=== PATIENT | male | born 1950 | race Caucasian/White ===

== ENCOUNTER 2019-11-30 07:47 | Inpatient (IN) | payer MEDICARE ==
--- NOTE | 2019-11-30 08:00 | ED ---
Abdominal Pain/Male - HPI Summary HPI Summary: Patient is a 69 y/o M presenting to the ED via EMS for a chief complaint of abdominal pain near the right inguinal region that began 10 days ago and worsened on 11/29/19 to the include the umbilical region. He reports having the hernia for 12 years. On 11/29/19, he was seen by Dr. Mcdonald for a consult, and had his inguinal hernia reduced at that time. Later in the day after the visit, patient reports having worsening abdominal pain for which he was seen at [facility]. While at [place], patient was started on antibiotics for an abscess found on abdominal CT. Patient reports having diarrhea that began on , nausea that began on 11/30/19, diaphoresis, and dizziness. Patient denies any fever, chills, weight loss, erythema of eyes, sore throat, chest pain , shortness of breath, cough, vomiting, dysuria, hematuria, myalgia, edema, or rash. He rates the abdominal pain as a 9/10 in severity. Movement worsens the abdominal pain. Morphine given at [place] improved the abdominal pain. PMHx is significant for HTN, but a history of DM is denied. Patient admits tobacco use. - History of Current Complaint Chief Complaint: EDAbdPain Stated Complaint: ABDOMINAL PAIN PER EMS Time Seen by Provider: 11/30/19 07:48 Hx Obtained From: Patient Onset/Duration: Gradual Onset, Still Present Timing: Constant Severity Initially: Severe Severity Currently: Moderate Pain Intensity: 9 Pain Scale Used: 0-10 Numeric Location: Discrete At: RLQ, Umbilical Radiates: No Aggravating Factor(s): Movement Alleviating Factor(s): Medications - Morphine Associated Signs And Symptoms: Positive: Diaphoresis, Dizzy, Nausea, Diarrhea. Negative: Fever, Cough, Chest Pain, Vomiting - Allergies/Home Medications Allergies/Adverse Reactions: Allergies Allergy/AdvReac Type Severity Reaction Status Date / Time No Known Allergies Allergy Verified 11/30/19 07:54 Home Medications: Home Medications Aspirin EC TAB* [Ecotrin EC Low Dose 81 MG*] 81 mg PO DAILY 11/30/19 [History Confirmed 11/30/19] Lisinopril TAB* [Prinivil TAB*] 20 mg PO BID 11/30/19 [History Confirmed ] Naproxen Sodium [Aleve] 220 mg PO DAILY PRN 11/30/19 [History Confirmed 11/30/19 ] PMH/Surg Hx/FS Hx/Imm Hx Previously Healthy: Yes Endocrine/Hematology History: Denies: Hx Diabetes Cardiovascular History: Reports: Hx Hypertension - Well-controlled GI History: Reports: Other GI Disorders - Hernia Sensory History: Denies: Hx Legally Blind, Hx Deafness Opthamlomology History: Denies: Hx Legally Blind EENT History: Denies: Hx Deafness - Surgical History Surgical History: None Surgery Procedure, Year, and Place: None Infectious Disease History: No Infectious Disease History: Denies: Traveled Outside the [place] in Last 30 Days - Family History Known Family History: Negative: Diabetes - Social History Occupation: Retired Lives: With Family Alcohol Use: None Hx Substance Use: No Substance Use Type: Reports: None Hx Tobacco Use: Yes Smoking Status (MU): Current Every Day Smoker Type: Cigarettes Review of Systems Positive: Skin Diaphoresis. Negative: Fever, Chills, Other - Negative weight loss Negative: Erythema Negative: Sore Throat Negative: Chest Pain Negative: Shortness Of Breath, Cough Positive: Abdominal Pain - Right inguinal and umbilical regions, Nausea. Negative: Vomiting Negative: dysuria, hematuria Negative: Myalgia, Edema Negative: Rash Neurological/Mental Status: Other - Positive dizziness All Other Systems Reviewed And Are Negative: Yes Physical Exam - Summary Physical Exam Summary: Constitutional: Well-developed, Well-nourished, Alert. (-) Distressed Skin: Warm, Dry HENT: Normocephalic; Atraumatic Eyes: Conjunctiva normal Neck: Musculoskeletal ROM normal neck. (-) JVD, (-) Stridor, (-) Tracheal deviation Cardio: Rhythm regular, rate normal, Heart sounds normal; Intact distal pulses; The pedal pulses are 2+ and symmetric. Radial pulses are 2+ and symmetric. (-) Murmur Pulmonary/Chest wall: Effort normal. (-) Respiratory distress, (-) Wheezes, (-) Rales Abd: Soft, (-) Distension, (-) Guarding, (-) Rebound. Large right inguinal hernia that is tender to palpation, exquisite RLQ tenderness Musculoskeletal: (-) Edema Lymph: (-) Cervical adenopathy Neuro: Alert, Oriented x3 Psych: Mood and affect Normal Triage Information Reviewed: Yes Vital Signs Reviewed: Yes Procedures - Sedation Patient Received Moderate/Deep Sedation with Procedure: No Diagnostics - Laboratory Result Diagrams: 11/30/19 08:21 11/30/19 08:21 Lab Statement: Any lab studies that have been ordered have been reviewed, and results considered in the medical decision making process. - EKG 08:01 Cardiac Rate: NL - 75 BPM EKG Rhythm: Sinus Rhythm ST Segment: Normal Ectopy: None Summary of EKG Findings: EKG at 08:01 shows normal sinus rhythm with 75 BPM, T wave inversion in lead I, no STEMI. Reviewed and interpreted by Dr. Martines. Abdominal Pain Male Course/Dx - Course Course Of Treatment: Patient is a 69 y/o M presenting to the ED via EMS for a chief complaint of abdominal pain near the right inguinal region that began 10 days ago and worsened on 11/29/19 to the include the umbilical region. He reports having the hernia for 12 years. On 11/29/19, he was seen by Dr. Mcdonald for a consult, and had his inguinal hernia reduced at that time. Later in the day after the visit, patient reports having worsening abdominal pain for which he was seen at [facility]. While at [place], patient was started on antibiotics for an abscess found on abdominal CT. Patient reports having diarrhea that began on 11/29/19, nausea that began on 11/30/19, diaphoresis, and dizziness. Patient denies any fever, chills, weight loss, erythema of eyes, sore throat, chest pain, shortness of breath, cough, vomiting, dysuria, hematuria, myalgia, edema, or rash. PMHx is significant for HTN, but a history of DM is denied. On exam, large right inguinal hernia that is tender to palpation, exquisite RLQ tenderness. In the ED course, patient was given fentanyl 75 mcg TRANSDERM, fentanyl 75 mcg IV SLOW, nicotine 1 patch TRANSDERM, and IV fluids. EKG at 08:01 shows normal sinus rhythm with 75 BPM, T wave inversion in lead I, no STEMI. Laboratory abnormal findings: absolute neuts 10.1, absolute monos 0.5, INR 1.19, APTT 18, carbon dioxide 16. At 08:07, I discussed with Dr. Rosana Durand who will evaluate imaging. I discussed my concern for strangulated hernia rather than abscess. At 09:23, Dr. Rosana Durand recommends oral antibiotics and Augmentin BID for 2 weeks. We reviewed the records from [place], and reviewed the CT report and labs. I reviewed patients PCP reports whereby patient received a general surgery consultation; no EKG is available. Reviewing the [place] records, patients pulse was 100, respiration 92, BP 96/ 58, oximetry 92%. Patient became hypotensive after receiving morphine. According to [place] notes, a comparison to an EKG on 07/2013 shows T wave inversions and ST depressions are new. At 09:39, Dr. Tressa Dave reviewed the patients case and agrees to admit the patient to [facility] with a diagnosis of sepsis, right-sided abdominal abscess, and myocardial ischemia. Patient will be admitted to [facility] with a diagnosis of sepsis, right-sided abdominal abscess, and myocardial ischemia. - Diagnoses Provider Diagnoses: Myocardial ischemia, Sepsis, Abdominal abscess - Provider Notifications Discussed Care Of Patient With: Rosana Durand - At 08:07, I discussed with Dr. Rosana Durand who will evaluate imaging. I discussed my concern for strangulated hernia rather than abscess. At 09:23, Dr. Rosana Durand recommends oral antibiotics and Augmentin BID for 2 weeks. At 09:39, Dr. Tressa Dave reviewed the patients case and agrees to admit the patient to [facility] with a diagnosis of sepsis, right- sided abdominal abscess, and myocardial ischemia. Time Discussed With Above Provider: 08:07 Instructed by Provider To: Admit As Inpatient Discharge ED - Sign-Out/Discharge Documenting (check all that apply): Patient Departure - Admit - Discharge Plan Condition: Stable Disposition: ADMITTED TO [facility] Referrals: Care [facility] [Outside] - Attestation Statements Document Initiated by Scribe: Yes Documenting Scribe: Magda Specner Provider For Whom Scribe is Documenting (Include Credential): Dov Martines MD Scribe Attestation: I, Magda Spencer, scribed for Dov Martines MD on 11/30/19 at 1018. Status of Scribe Document: Ready
[2019-11-30] MEDS ORDERED: NS 0.9% 1000 ML** 1,000 ML IV SCH ×2 (08:15→10:45)
[2019-11-30 08:34] LABS: ABS Lymphocytes 0.5 10^3/ul (1.0-4.8); ABS Monocytes 0.7 10^3/ul (0-0.8); ABS Neutrophils 10.1 10^3/ul (1.5-7.7); Eosinophil % 0.2 %; Hematocrit 45 % (42-52); Hemoglobin 14.7 g/dL (14.0-18.0); Lymphocyte % 4.3 %; Mean Corpuscular HGB Conc 33 g/dL (31-36); Mean Corpuscular Hemoglobin 31 pg (27-31); Mean Corpuscular Volume 95 fL (80-94); Mean Platelet Volume 9.9 fL (7.4-10.4); Platelet Count 172 10^3/uL (150-450); Red Cell Distribution Width 13 % (10-15); White Blood Count 11.4 10^3/uL (3.5-10.8)
[2019-11-30 08:41] LABS: INR 1.19 (0.82-1.09)
[2019-11-30] MEDS ORDERED: fentaNYL* 50 MCG/ML 2 ML VIAL (100 MCG VIAL) IV SLOW PU ONE (08:50)
[2019-11-30] MEDS ORDERED: Nicotine PATCH 14 MG/24 HR* PATCH TRANSDERM ONE (08:50)
[2019-11-30 08:51] LABS: Albumin 3.2 g/dL (3.2-5.2); Albumin/Globulin Ratio 0.9 (1-3); BUN/Creatinine Ratio 13.4 (8-20); Calcium 8.4 mg/dL (8.6-10.3); EGFR African American 72.9 (>60); EGFR Non-African American 60.3 (>60); Globulin 3.4 g/dL (2-4); Potassium 4.5 mmol/L (3.5-5.0); Total Bilirubin 0.6 mg/dL (0.2-1.0); Total Protein 6.6 g/dL (6.4-8.9)
[2019-11-30 08:53] LABS: Troponin I 0.01 ng/mL (<0.03)
[2019-11-30] MEDS ORDERED: fentaNYL PATCH 75 MCG/HR* 75 MCG TRANSDERM SCH (09:00)
--- NOTE | 2019-11-30 10:10 | CONSULT ---
Consult Consult: DATE OF CONSULTATION: 11/30/19 REASON FOR CONSULTATION: Abdominal pain and intra-abdominal abscess PCP: Vince Alves MD HPI: Lowell Pollock is a 69 year-old man with a history of HTN who presented to the ED at [place] for abdominal pain. He started having right groin pain about 1 week ago. The pain was about 8/10, and it was severe enough that he had a hard time sleeping. He saw his PCP on 11/24. The patient has a right inguinal hernia that has been present for about 12 years but had been more or less asymptomatic. The pain was over the right hernia. He saw Dr Mcdonald yesterday in clinic to discuss hernia repair. The hernia was reduced, and the pain improved a little bit. Last night he developed severe infraumbilical abdominal pain. He denies fevers but had sweats and nausea last night. He also reports diarrhea yesterday but bowel movements had been normal and regular for the past week. He denies dysuria or hematuria. Appetite has been normal up until yesterday. He reports he did not really eat or drink yesterday. Denies chest pain or shortness of breath. Last colonoscopy was 2004 where he was found to have benign polyps. He was supposed to have a repeat scope 5 years after which did not happen. He was then told that he did not need another colonoscopy after 68 years old. At [place], WBC was 10.[address]. [address] abdomen/pelvis showed an intra -abdominal abscess in addition to bilateral fat-containing inguinal hernias. He became hypotensive after receiving morphine. He received one dose of Zosyn and 1L NS before being transferred to [place] ED. Of note, he also had new ST depressions on EKG but troponin was normal. He has been hemodynamically stable in the [place] ED. PMH: HTN Peripheral vascular disease Tobacco use PSH: Knee surgery in 1960s after football injury Home Medications Medication Instructions Recorded Confirmed Type Aspirin EC TAB* [Ecotrin EC Low 81 mg PO DAILY 11/30/19 11/30/19 History Dose 81 MG*] Lisinopril TAB* [Prinivil TAB*] 20 mg PO BID 11/30/19 11/30/19 History Naproxen Sodium [Aleve] 220 mg PO DAILY PRN 11/30/19 11/30/19 History Allergies No Known Allergies Allergy (Verified 11/30/19 07:54) FH: Father in 1960s, thought to be due to a heart issue. He had a h/o scarlet fever. Mother from lung cancer. He has 2 sisters who are overall healthy. No h/o cancers or bleeding disorders in the family. SH: Patient lives with his significant other of 30 years. He is retired. He smokes about 1/2 ppd and first started smoking as a teenager. He drinks alcohol about once a month. He denies recreational drug use. ROS: 10-point review of systems was obtained. Pertinent positives and negatives are in HPI. PHYSCIAL EXAM: Temp Pulse Resp BP Pulse Ox 97.6 F 78 18 127/77 95 11/30/19 07:49 11/30/19 09:13 11/30/19 08:55 11/30/19 09:13 11/30/19 09:13 General: NAD, lying on stretcher Head: Normocephalic and atraumatic Eyes: Pupils equal, no scleral icterus. Mouth: Moist mucous membranes Neck: Supple. Trachea midline. CV: RRR Respiratory: CTA, no accessory muscle use Abdomen: Soft, nondistended. Tenderness to palpation, worse in periumbilical area and mild tenderness in bilateral lower quadrants. R inguinal hernia that is mildly tender to palpation. Guarding when palpating bilateral lower quadrants , no rebound. Skin: Warm and dry. Intact Extremities: Warm. No pedal edema. Neuro: Alert and oriented x3. Moves all extremities equally. Psych: Normal affect. Laboratory Results - last 24 hr 11/30/19 11/30/19 11/30/19 08:11 08:21 08:21 WBC 11.4 H RBC 4.70 Hgb 14.7 Hct 45 MCV 95 H MCH 31 MCHC 33 RDW 13 Plt Count 172 MPV 9.9 Neut % (Auto) 88.8 Lymph % (Auto) 4.3 Nye % (Auto) 6.5 Eos % (Auto) 0.2 Baso % (Auto) 0.2 Absolute Neuts (auto) 10.1 H Absolute Lymphs (auto) 0.5 L Absolute Monos (auto) 0.7 Absolute Eos (auto) 0.0 Absolute Basos (auto) 0.0 Absolute Nucleated RBC 0.0 Nucleated RBC % 0.0 INR (Anticoag Therapy) 1.19 H APTT 18.0 L Sodium 133 L Potassium 4.5 Chloride 109 Carbon Dioxide 16 L Anion Gap 8 BUN 16 Creatinine 1.19 H Est GFR ( Amer) 72.9 Est GFR (Non-Af Amer) 60.3 BUN/Creatinine Ratio 13.4 Glucose 93 Lactic Acid Calcium 8.4 L Total Bilirubin 0.60 AST 10 L ALT 6 L Alkaline Phosphatase 59 Troponin I 0.01 Total Protein 6.6 Albumin 3.2 Globulin 3.4 Albumin/Globulin Ratio 0.9 L 11/30/19 08:21 WBC RBC Hgb Hct MCV MCH MCHC RDW Plt Count MPV Neut % (Auto) Lymph % (Auto) Nye % (Auto) Eos % (Auto) Baso % (Auto) Absolute Neuts (auto) Absolute Lymphs (auto) Absolute Monos (auto) Absolute Eos (auto) Absolute Basos (auto) Absolute Nucleated RBC Nucleated RBC % INR (Anticoag Therapy) APTT Sodium Potassium Chloride Carbon Dioxide Anion Gap BUN Creatinine Est GFR ( Amer) Est GFR (Non-Af Amer) BUN/Creatinine Ratio Glucose Lactic Acid 0.7 Calcium Total Bilirubin AST ALT Alkaline Phosphatase Troponin I Total Protein Albumin Globulin Albumin/Globulin Ratio CT abdomen/pelvis: Bilateral fat-containing inguinal hernias. Heterogenous structure near sigmoid colon in right mid to lower abdomen, 6 x 4 x 4.6 cm. There is adjacent stranding, possible abscess. IMPRESSION: 69M with early intra-abdominal abscess, most likely due to diverticular disease. I reviewed the images with Dr Kay who felt that the collection was small and appeared more like a phlegmon than abscess. There also may not be a safe window. I discussed with the patient that he will need treatment with antibiotics. He is comfortable going home and prefers to go home. He will call the clinic at [place] to schedule a follow up appt with Dr Lozada next . I recommended colonoscopy in about 3 months to rule out another reason for the abscess such as malignancy. The inguinal hernias could be repaired electively. We also talked about possible work up for the EKG changes which may require admission. PLAN: Cardiac work up per ED and hospitalist teams. Augmentin (or equivalent) for 14 days. Pain medication. Cautioned patient against Aleve since creatinine was elevated at [place], although repeat creatinine here is almost normal. Recommended colonoscopy in about 3 months. I discussed with the patient that he should return to the ED if he develops fevers, worsening abdominal pain, or nausea/vomiting. Discussed smoking cessation but patient declined.
[2019-11-30] MEDS ORDERED: Ondansetron INJ* 2 MG/ML VIAL IV PRN (10:16)
[2019-11-30] MEDS ORDERED: Al Hydrox/Mg Hydrox/Simet LIQ* 30 ML UDC PO PRN (10:16)
[2019-11-30] MEDS ORDERED: Acetaminophen TAB* 325 MG PO PRN (10:16)
--- NOTE | 2019-11-30 13:11 | HP ---
CC: Dr. Alves * HISTORY AND PHYSICAL: DATE OF ADMISSION: 11/30/19 PROVIDER: LILI Warren ATTENDING PHYSICIAN WHILE IN THE HOSPITAL: Dr. Tressa Baldwin * (dictated by LILI Warren). PRIMARY CARE PROVIDER: Dr. Alves. CHIEF COMPLAINT: Abdominal pain. HISTORY OF PRESENT ILLNESS: Lowell Pollock is a 69-year-old white male with past medical history significant for hypertension and peripheral arterial disease, who initially presented to [facility] Emergency Department due to severe abdominal pain. The patient has been having right lower quadrant pain x10 days at the site of a chronic inguinal hernia that he has had for 12 years, and for that reason, he established care with Dr. Mcdonald in the general surgery practice. The patient saw him in the office yesterday. His hernia was reduced manually in the office and his pain was improved, but when he arrived home later in the evening, his pain was worse again before and was radiating towards the umbilicus. Since yesterday evening, the patient has had 7 to 8 episodes of diarrhea. He started feeling nauseous, diaphoretic and lightheaded today and decided to proceed to the emergency department. He additionally has been without an appetite. He denies fevers, chills, chest pain, difficulty breathing, syncope, dysuria, hematuria, hematochezia, and vomiting. When he actually arrived to the emergency department at [facility], his systolic blood pressure was in the 90s, but he has since received 2 L of normal saline at [facility] and since he has arrived to the emergency department here, his systolic blood pressure has been in the 120s to 130s. Dr. Rosana Durand saw the patient in consultation from the general surgery service. She recommended conservative management with oral antibiotics and discharged to home. However, Dr. Martines was concerned for sepsis considering the patient's SIRS criteria of tachypnea, tachycardia and hypotension and is requesting admission to the hospital and evaluation by the hospital medicine team. PAST MEDICAL HISTORY: 1. Hypertension. 2. Peripheral arterial disease confirmed with abnormal ABIs. 3. Right inguinal hernia x12 years. PAST SURGICAL HISTORY: Right knee repair approximately 50 years ago. HOME MEDICATIONS: 1. Aspirin 81 mg p.o. daily. 2. Lisinopril 20 mg p.o. b.i.d. 3. Naproxen 220 mg p.o. daily p.r.n. pain. ALLERGIES: No known drug allergies. FAMILY HISTORY: Father at age 47 due to "heart problems". Mother at age 75 due to lung cancer. SOCIAL HISTORY: The patient smokes tobacco approximately half a pack per day for 50 years. Denies illicit drug use. He drinks an alcoholic beverage once a month. He has 3 children and he has been with his partner for 30 years and lives with her. He is retired and previously worked in [employer]. His partner's name is Jennifer Restrepo, she is his surrogate medical decision maker should he need one. Her phone number is [phone]. REVIEW OF SYSTEMS: An 11-point review of systems was completed and all pertinent positives and negatives are above in the HPI. All other systems are negative. PHYSICAL EXAMINATION GENERAL: Elderly white male lying in hospital bed, appearing comfortable, in no acute distress. VITAL SIGNS: On arriving to [facility], temperature 97.6, pulse 77, respiratory rate 16, oxygen saturation 96% on room air, blood pressure 138/76. EYES: PERRL. Sclerae anicteric. ENT: Mucous membranes moist. LUNGS: Clear to auscultation throughout. CARDIO: Regular rate and rhythm without murmurs, rubs or gallops. ABDOMEN: Normoactive bowel sounds. Abdomen is tender in the lower quadrant. No rebound tenderness, guarding, distention. Jar sign is negative. EXTREMITIES: No clubbing, cyanosis or edema. NEUROLOGIC: The patient is alert and oriented x3. Able to move all extremities. No tremors. SKIN: Warm, dry and intact. Not diaphoretic. PERTINENT STUDIES/LAB DATA: White blood cell count 11.4, hemoglobin 14.7, hematocrit 45, platelet count 172. INR 1.19, PTT 18. Sodium 133, potassium 4.5 , chloride 109, carbon dioxide 16, anion gap 8, BUN 16, creatinine 1.19, glucose 93, lactic acid 0.7, calcium 8.4. Total bili 0.6, AST 10, ALT 6, alk phos 59. Troponin 0.01. Creatinine at [facility] this morning was 1.7. Troponin at [facility] this morning was 0.02. CT chest with contrast performed this morning at [facility], radiologist's impression: No acute findings. CT abdomen and pelvis with contrast performed at [facility] this morning, findings include: There are 2 low-density lesions in the left lobe of the liver with the larger one measuring approximately 1.4 cm, probably cyst. There is an area of asymmetric decreased density in the right lobe of the liver measuring approximately 8.8 x 6.3 x 6.0 cm in size suggesting fatty infiltration. Bilateral renal cysts are identified. The largest cyst is in the left kidney and it measures approximately 2.2 cm. A few colonic diverticula are demonstrated. There is an abnormal heterogeneous structure in close association to the sigmoid colon. The structure measures approximately 6.0 x 4.0 x 4.6 cm in size. There is some stranding of the surrounding mesentery. The appendix is not definitely identified. Radiologist's impression: 1. Heterogeneous soft tissue mass in the right mid to lower abdomen, suspicious for abscess. 2. Colonic diverticulosis. 3. Calcifications at the common iliac arteries with high-grade stenosis. 4. Two hepatic cysts. 5. Area of diminished attenuation of the liver, possibly fatty infiltration. 6. Bilateral renal cysts. EKG: T-wave inversions in lead V2 through V5 with T-wave flattening in V6. No ST depressions or elevations. There are some repolarization changes in V3 through V4. Normal sinus rhythm, upright axis with rate of 75 beats per minute. Of note, I was able to obtain an EKG from December of 2012 from [facility], which demonstrated upright T-waves in all of the lateral and septal leads. Therefore, these changes are new. ASSESSMENT AND PLAN: Lowell Pollock is a 69-year-old while male with past medical history significant for peripheral arterial disease and hypertension, who presented to the emergency department due to abdominal pain. The patient will be admitted OBV for: 1. Colonic abscess. I suspect this likely represents a diverticular abscess. While the general surgery team was initially planning to manage this conservatively outpatient, we will be bringing him in OBV for overnight monitoring considering he was hypotensive in the emergency department at [place]. This has now improved. Dr. Rosana Durand is aware that he has been inpatient and someone from general surgery team will be seeing the patient tomorrow as well. I will start him on IV Cipro and Flagyl. Continue to monitor him and pain control and symptomatic control. Due to his high volume of diarrhea, I will be checking him for C. diff as well. I will also have him on clear liquid diet and I will be able to advance this as tolerated. 2. EKG changes. The patient has changes on his EKG compared to 2013 EKG. I currently have no suspicion for acute coronary syndrome as the patient is asymptomatic and his troponin has been negative x2 values at [place] and at our emergency department. I suspect that the patient likely had a silent myocardial infarction sometime in the recent years, especially considering his risk factors of hypertension, family history and peripheral arterial disease. I will monitor him on telemetry, but I have no need to further work this up at this time. The patient should likely have outpatient followup regarding this including a stress test and echocardiogram. Additionally, his PCP should follow his incidental findings on his liver and of the high-grade stenosis of his common iliac artery. 3. Sepsis. The patient has sepsis secondary to the colonic abscess. His SIRS criteria includes hypotension when he arrived to the emergency department at [place] as well as tachycardia, tachypnea. He is afebrile without leukocytosis. He will be receiving IV antibiotics as previously mentioned and his blood cultures have been drawn. He already received sepsis fluid bolus at the ED at [place] and I will be continuing IV fluids further discussed below. 4. Acute kidney injury. The patient had a creatinine of 1.7 when he arrived to the [place] ED. I suspect this is prerenal considering his poor oral intake and diarrhea. This has already improved since receiving fluids in the [place] ED. I will continue the normal saline at 100 cc/hour. I do not believe he has chronic kidney disease at baseline as I do have records from his PCP, it does not state this. 5. Hypertension. The patient takes lisinopril at home. I will be holding this due to his initial presentation with hypotension. 6. Peripheral arterial disease. I will continue the patient's aspirin and as previously mentioned he should follow up on the incidental finding of high- grade stenosis of his common iliac artery on CT done at [place] with his PCP. 7. Tobacco use. The patient smokes half a pack per day and I will start a nicotine patch 14 mg for 24 hours. 8. FEN. The patient is having clear liquid diet and I will advance as tolerated. Fluids as previously mentioned. Electrolytes are no need for repletion. 9. DVT prophylaxis. The patient has a DVT risk score of 2 and I will order subcu heparin. 10. Code status. The patient is a full code. TIME SPENT: Approximately 50 minutes was spent on this admission, approximately half of this time was spent at bedside evaluating the patient and discussing plan of care. This case has been reviewed by my attending, Dr. Tressa Baldwin and she agrees with this plan of care. LILI WARREN [id number]/[facility] #: [id number] ALIYAH
[2019-11-30] MEDS: metroNIDAZOLE IV 500 MG/100ML* 500 MG/100 ML BAG IVPB SCH ×2 (15:04→21:40)
[2019-11-30] MEDS: Heparin VIAL(*) 5000 UNITS/ML VIAL (FIVE THOUSAND) SUBCUT SCH ×2 (15:04→21:41)
[2019-11-30] MEDS: Morphine INJ* 2 MG/ML 1 ML SYRINGE (TWO MG - NEW SYRINGE VERSION) IV PRN (15:09)
[2019-11-30] MEDS: oxyCODONE TAB* 5 MG TAB PO PRN (17:11)
[2019-11-30] MEDS: Ciprofloxacin 400MG IVPREMIX(* 400 MG/200 ML BAG IVPB SCH (17:12)
[2019-11-30] MEDS ORDERED: Nicotine Patch Removal NOTE FOLLOW UP SCH (21:00)
[2019-11-30] MEDS: oxyCODONE/Acetamin 5/325 MG* TAB PO PRN (21:55)
[2019-12-01] MEDS: Ciprofloxacin 400MG IVPREMIX(* 400 MG/200 ML BAG IVPB SCH (02:00)
[2019-12-01] MEDS: Morphine INJ* 2 MG/ML 1 ML SYRINGE (TWO MG - NEW SYRINGE VERSION) IV PRN ×3 (02:01→21:01)
[2019-12-01] MEDS: oxyCODONE TAB* 5 MG TAB PO PRN ×2 (02:01→21:00)
[2019-12-01] MEDS ORDERED: Metoprolol Tartrate IV* 1 MG/ML 5 ML VIAL IV ONE ×2 (05:08→06:22)
[2019-12-01] MEDS: Heparin VIAL(*) 5000 UNITS/ML VIAL (FIVE THOUSAND) SUBCUT SCH (05:19)
[2019-12-01] MEDS: metroNIDAZOLE IV 500 MG/100ML* 500 MG/100 ML BAG IVPB SCH ×4 (05:19→21:01)
--- NOTE | 2019-12-01 05:38 | PN ---
Hospitalist Progress Note Date of Service: 12/01/19 450 patient went into afib rvr hr 140-150 no symptoms, denies chest pain, denies sob, denies palpitations, lungs cta, heart sounds s1 s2 irregular irregular, plan chadsvasc2 -3 will start hep gtt in case need for intervention on abd abcess, 5mg iv lopressor now cbc bmp mag tsh, ekg confirms afib rvr t wave inversion noted v3-v5 flat in v6 I inverted similar to previous ekg afib new echo ordered will need cards consult, made npo in case cardioversion pursued,
[2019-12-01] MEDS: Heparin VIAL(*) 5000 UNITS/ML VIAL (FIVE THOUSAND) IV PRN ×2 (05:42→21:01)
[2019-12-01] MEDS: Heparin DRIP 25,000 UNITS(*) 25,000 UNITS/500 ML BAG IV SCH (05:43)
[2019-12-01 05:51] LABS: ABS Eosinophils 0.1 10^3/ul (0-0.6); ABS Lymphocytes 0.9 10^3/ul (1.0-4.8); ABS Monocytes 0.7 10^3/ul (0-0.8); Eosinophil % 0.6 %; Hematocrit 43 % (42-52); Hemoglobin 14.4 g/dL (14.0-18.0); Lymphocyte % 8.1 %; Mean Corpuscular HGB Conc 34 g/dL (31-36); Mean Corpuscular Hemoglobin 32 pg (27-31); Mean Corpuscular Volume 95 fL (80-94); Mean Platelet Volume 10.2 fL (7.4-10.4); Nucleated Red Blood Cells % 0.1; Platelet Count 138 10^3/uL (150-450); Red Blood Count 4.47 10^6 /uL (4.18-5.48); Red Cell Distribution Width 13 % (10-15); White Blood Count 10.7 10^3/uL (3.5-10.8)
[2019-12-01 05:59] LABS: Activated Partial Thrombo Time 34.4 seconds (26.0-38.0); INR 1.64 (0.82-1.09)
[2019-12-01 06:10] LABS: BUN/Creatinine Ratio 13.4 (8-20); Calcium 8.7 mg/dL (8.6-10.3); EGFR African American 78.2 (>60); EGFR Non-African American 64.6 (>60); Magnesium 1.6 mg/dL (1.9-2.7); Potassium 4.5 mmol/L (3.5-5.0)
[2019-12-01 06:13] LABS: Troponin I 0.02 ng/mL (<0.03)
[2019-12-01] MEDS: oxyCODONE/Acetamin 5/325 MG* TAB PO PRN (06:20)
[2019-12-01] MEDS ORDERED: Magnesium Sulfate 2 GM IV* 2 GM/50 ML BAG IVPB ONE (06:30)
[2019-12-01 06:43] LABS: TSH (Thyroid Stimulating Horm) 2.12 mcIU/mL (0.34-5.60)
[2019-12-01 06:45] LABS: Free T4 1.05 ng/dL (0.61-1.12)
[2019-12-01 07:13] LABS: Albumin/Globulin Ratio 0.9 (1-3); Globulin 3.5 g/dL (2-4); Total Bilirubin 0.5 mg/dL (0.2-1.0); Total Protein 6.5 g/dL (6.4-8.9)
[2019-12-01] MEDS ORDERED: Digoxin IV* 0.5 MG/2 ML AMP (0.25 MG/ML) IV SLOW PU ONE ×2 (07:26→09:21)
[2019-12-01] MEDS: Nicotine PATCH 14 MG/24 HR* PATCH TRANSDERM SCH (08:26)
[2019-12-01] MEDS: Aspirin EC TAB* 81 MG TAB.EC PO SCH (08:27)
[2019-12-01] MEDS: Nicotine Patch Removal NOTE PATCH OFF SCH (08:33)
--- NOTE | 2019-12-01 09:16 | ECHO ---
*[facility]* [place] [address] Fax #: [phone] Transthoracic Echocardiogram Patient: Lowell Pollock : 1950 Study Date: 12/01/2019 Age: 69 Gender: M HR: 124 bpm Height: 70 in /177.8 cm BSA: 2.05 m^2 Weight: 191.6 lb /87.1 kg BMI: 27.5 kg/m^2 *[place]aters[facility] Tender: * Radha Crocker *Referring Physician: * Gamal GaticaReading Physician: * Cedrick Jones MD Indications: Abnormal EKG. History: Atrial fibrillation. Risk factors: Current tobacco use. Hypertension. Family history is significant for coronary artery disease. Conclusions Summary: - Left ventricle: Systolic function is hyperdynamic. The estimated ejection fraction is 65-70%. - Right ventricle: The cavity size is normal. Wall thickness is mildly increased. - Mitral valve: There is trace regurgitation. - Tricuspid valve: There is trace regurgitation. Study data: Transthoracic echocardiogram. Procedure: Transthoracic echocardiography was performed. Image quality was adequate. Complete 2D, spectral Doppler, and color flow Doppler. Location: Bedside. Patient status: Inpatient. Patient room number: 431-01. No prior study is available for comparison. Rhythm: Atrial fibrillation. Findings Left ventricle: The cavity size is normal. Wall thickness is normal. Systolic function is hyperdynamic. The estimated ejection fraction is 65-70%. Wall motion is normal; there are no regional wall motion abnormalities. Left ventricular diastolic function parameters are indeterminate. Right ventricle: The cavity size is normal. Wall thickness is mildly increased. Systolic function is normal. Ventricular septum: The ventricular septum is normal. Left atrium: The atrium is normal in size. Right atrium: The atrium is at the upper limits of normal in size. Atrial septum: No defect or patent foramen ovale is identified. Mitral valve: The valve is structurally normal. There is no evidence of stenosis. There is trace regurgitation. Aortic valve: The valve is structurally normal. The valve is trileaflet. Cusp separation is normal. Transvalvular velocity is within the normal range. There is no evidence of stenosis. There is no significant regurgitation. Tricuspid valve: The valve is structurally normal. There is no evidence of stenosis. There is trace regurgitation. Pulmonic valve: The valve is structurally normal. There is no evidence of stenosis. There is trace regurgitation. Aorta: The aortic root appears normal. The aortic arch appears normal. Pericardium: There is no significant pericardial effusion. Pulmonary arteries: Systolic pressure can not be accurately estimated. Systemic veins: Inferior vena cava: There is (>= 50%) respiratory change in the IVC dimension. Pulmonary veins: The Pulmonary veins appear normal. Measurements Left ventricle Value Ref Aortic valve Value Ref SUMIT, LAX (L) 4.0 cm 4.2 - 5.8 Peak v, S 1.27 m/sec ---- ESD, LAX 2.8 cm 2.5 - 4.0 VTI, S 17.8 cm ---- FS, LAX 30 % 25 - 43 Mean grad, S 4.0 mm Hg ---- PW, ED, LAX (H) 1.2 cm 0.6 - 1.0 Peak grad, S 6.0 mm Hg ---- E', lat tenisha, TDI 11.6 cm/sec >=10.0 MARIO, VTI 2.76 cm^2 ---- E/e', lat tenisha, 10 MARIO, Vmax 2.24 cm^2 ---- TDI Mitral valve Value Ref LVOT Value Ref Peak E 1.2 m/sec ---- Diam, S 1.90 cm Peak A 0 m/sec ---- Area 2.8 cm^2 Decel time 153 ms ---- Peak boris, S 1 m/sec Peak grad, D 5.8 mm Hg ---- Mean grad, S 2 mm Hg SV 49 ml Pulmonic valve Value Ref Peak v, S 1.01 m/sec ---- Ventricular septum Value Ref Peak grad, S 4.0 mm Hg ---- IVS, ED (H) 1.2 cm 0.6 - 1.0 Aortic root Value Ref Right ventricle Value Ref Root diam 3.2 cm <4.2 AW thickness, ED (H) 0.7 cm 0.1 - 0.5 SUMIT, LAX 3.1 cm Ascending aorta Value Ref SUMIT minor ax, 3.5 cm 1.9 - 3.5 AAo AP diam, S 3.4 cm ---- A4C mid Aortic arch Value Ref Left atrium Value Ref Arch diam 3.0 cm ---- AP dim, ES (H) 4.20 cm 3.00 - 4.00 Inferior vena cava Value Ref ML dim, A4C 4.1 cm Diam 1.8 cm ---- SI dim, A4C 5.3 cm Vol/bsa, ES, 1-p 21 ml/m^2 12 - 37 A4C Right atrium Value Ref SI dim, ES 4.7 cm 3.4 - 5.3 ML dim, ES, A4C (H) 5.2 cm 2.6 - 4.4 SI dim, ES, A4C 4.7 cm 3.4 - 5.3 Legend: (L) and (H) carline values outside specified reference range. Prepared and electronically signed by Cedrick Jones MD 12/01/2019 09:15
--- NOTE | 2019-12-01 09:31 | PN ---
Progress Note - Progress Note Date of Service: 12/01/19 Note: Continues to have abdominal pain near umbilicus down to right groin. Morphine and Percocet help a little but he is still very uncomfortable. He tolerated clears yesterday and denies nausea or vomiting. He has been afebrile. Early this morning he went into a fib with RVR. Heparin gtt was started. Vital Signs - 12 hr Temp Pulse Resp BP Pulse Ox 12/01/19 08:30 16 12/01/19 08:26 153 12/01/19 07:53 16 12/01/19 07:25 98.8 F 130 16 94/59 94 12/01/19 06:20 16 12/01/19 05:42 134 125/78 12/01/19 05:23 143 143/73 12/01/19 04:39 16 12/01/19 03:03 97.8 F 78 17 108/64 95 12/01/19 02:03 16 12/01/19 02:02 16 12/01/19 02:01 16 11/30/19 23:42 98.7 F 75 17 109/56 96 11/30/19 21:55 16 Intake & Output 11/30/19 12/01/19 12/01/19 22:59 06:59 14:59 Intake Total 960 775.7 100 Output Total 0 Balance 960 775.7 100 Intake: IV Fluids 750 450 100 Cipro 0 Flagyl 0 NS 450 350 IVPB 300 Flagyl 100 Heparin 25.7 Oral 210 0 Output: Urine 0 General: NAD, but appears uncomfortable especially when turning in bed Abdomen: Soft, mildly distended, tenderness to palpation RLQ near umbilicus, mild tenderness over right groin. No rebound or guarding. Neuro: Alert and oriented x3. Laboratory Results - last 24 hr 12/01/19 12/01/19 12/01/19 05:35 05:36 05:36 WBC 10.7 RBC 4.47 Hgb 14.4 Hct 43 MCV 95 H MCH 32 H MCHC 34 RDW 13 Plt Count 138 L MPV 10.2 Neut % (Auto) 84.6 Lymph % (Auto) 8.1 Mchenry % (Auto) 6.4 Eos % (Auto) 0.6 Baso % (Auto) 0.3 Absolute Neuts (auto) 9.0 H Absolute Lymphs (auto) 0.9 L Absolute Monos (auto) 0.7 Absolute Eos (auto) 0.1 Absolute Basos (auto) 0.0 Absolute Nucleated RBC 0.0 Nucleated RBC % 0.1 INR (Anticoag Therapy) APTT Sodium 132 L Potassium 4.5 Chloride 106 Carbon Dioxide 19 L Anion Gap 7 BUN 15 Creatinine 1.12 Est GFR ( Amer) 78.2 Est GFR (Non-Af Amer) 64.6 BUN/Creatinine Ratio 13.4 Glucose 92 Calcium 8.7 Magnesium 1.6 L Total Bilirubin 0.50 AST 11 L ALT 7 Alkaline Phosphatase 54 Troponin I 0.02 Total Protein 6.5 Albumin 3.0 L Globulin 3.5 Albumin/Globulin Ratio 0.9 L TSH 2.12 Free T4 1.05 12/01/19 05:37 WBC RBC Hgb Hct MCV MCH MCHC RDW Plt Count MPV Neut % (Auto) Lymph % (Auto) Mchenry % (Auto) Eos % (Auto) Baso % (Auto) Absolute Neuts (auto) Absolute Lymphs (auto) Absolute Monos (auto) Absolute Eos (auto) Absolute Basos (auto) Absolute Nucleated RBC Nucleated RBC % INR (Anticoag Therapy) 1.64 H APTT 34.4 Sodium Potassium Chloride Carbon Dioxide Anion Gap BUN Creatinine Est GFR ( Amer) Est GFR (Non-Af Amer) BUN/Creatinine Ratio Glucose Calcium Magnesium Total Bilirubin AST ALT Alkaline Phosphatase Troponin I Total Protein Albumin Globulin Albumin/Globulin Ratio TSH Free T4 A&P 69M with intra-abdominal abscess. Pain is more or less unchanged. -Continue IV abx -Will d/w Dr Kay again. The collection is small so aspiration/drain may have more risk than benefit. -Pain control. Consider GLASS CUT OFF SUPERVISOR if oral medications are not adequate. -NPO. Clears if no procedure today. -Cardiology work up per hospitalist/cardiology teams.
[2019-12-01] MEDS ORDERED: cefTRIAXone(*) 1 GM in NS 0.9% 50 ML* 50 ML IVPB SCH (10:00)
[2019-12-01] MEDS ORDERED: Diltiazem IV push/loading dose 5 MG/ML 5 ML vial (25 mg) IV SLOW PU ONE (10:10)
[2019-12-01] MEDS ORDERED: Diltiazem IV BAG* D5W Premix 125 MG/125 ML BAG IV ONE (10:10)
[2019-12-01] MEDS ORDERED: Midazolam* 1 MG/ML 5 ML VIAL (5 MG) ONE (10:31)
[2019-12-01] MEDS ORDERED: Lidocaine 2% VISCOUS* 15 ML UDC ONE (10:32)
[2019-12-01] MEDS ORDERED: fentaNYL* 50 MCG/ML 2 ML VIAL (100 MCG VIAL) ONE (10:32)
[2019-12-01] MEDS ORDERED: Naloxone* 0.4 MG/ML 1 ML VIAL ONE (10:32)
[2019-12-01] MEDS ORDERED: Flumazenil* 0.1 MG/ML 5 ML MDV ONE (10:32)
--- NOTE | 2019-12-01 11:33 | CONS ---
CARDIOLOGY CONSULTATION DATE OF CONSULT: 12/01/2019. REASON FOR CONSULT: Atrial fibrillation. HISTORY OF PRESENT ILLNESS: This is a very pleasant, 69-year-old gentleman with a history of peripheral vascular disease, hypertension, and tobacco use who was in his usual state of health until October. At that time, he developed a flu and a cough and had more discomfort at the site of an old right inguinal hernia. He went to see his primary care doctor at the end of October and was referred for a surgical consultation. He saw Dr. Mcdonald on November 28 and was told that his hernia was easily reducible and it could managed conservatively. The following day he developed lower abdominal pain and presented to the emergency room on 4:00 a.m. on November 29. He had a CTA which revealed possible abdominal abscess. He was transferred for further evaluation. He also had an anterior T-wave inversion of uncertain duration without chest pain. He denied any fever, chills, or sweats. He had diarrhea on the , but no bowel movement since then. No nausea, vomiting, no hematemesis or hematochezia. He denies any chest pain. He is not aware of any palpitations. Early this morning, he was noted to go into A-fib with a rapid ventricular response. He has received Metoprolol 5 mg IV times two doses, as well as Digoxin 0.25 times two doses with only minimal improvement in his heart rate. Currently he is in the 110s to 130s. He continues to deny any awareness of his rapid heartbeat. He has had no chest pain, no shortness of breath, no lightheadedness. He denies any previous rheumatic fever, murmurs, heart problems. He smokes a half-a-pack a day. He has two to three cups of caffeine a day. PAST MEDICAL HISTORY: Peripheral artery disease with femoral artery obstructions according to the patient, hypertension, tobacco use. He denies emphysema or asthma, obesity. He had gout once. PAST SURGICAL HISTORY: Left knee surgery in the 60s. He denies any drug allergies. He has about one alcoholic beverage a month. He is retired from the [employer] industry. He is . He lives with his girlfriend. He has three adult children. He said he usually walks four to five miles a day without problems and did that last last week. MEDICATIONS: Medications at home include: 1. Naprosyn 220 daily prn. 2. Aspirin 81 mg daily. 3. Lisinopril 20 mg b.i.d. As an inpatient, he is on: 1. Acetaminophen. 2. Maalox. 3. Aspirin 81 mg a day. 4. Ceftriaxone. 5. IV Heparin. 6. Flagyl 500 mg q.8. 7. Nicotine patch 14 mg/24 hours. 8. Zofran 4 mg IV prn. 9. Oxycodone 10 mg q.4 prn. 10. Sodium Chloride 100 cc an hour. 11. Digoxin 0.25 times two doses. 12. IV Metoprolol 5 mg times two doses. 13. IV magnesium 2 gm. ros neg x 10 except as above. PHYSICAL EXAM: On physical exam, he is a well-developed, well-nourished gentleman. No apparent distress. Obese. Heart rate in the 130s. Blood pressure was 94/59 at 7:25. No significant JVD. Carotids 2+ without bruits. No cervical adenopathy, no thyromegaly. Extraocular muscles intact. Sclerae anicteric. Cardiac: S1, S2, tachycardic. No murmurs, gallops or rubs. Chest : Clear with decreased breath sounds. Prolonged expiratory phase. Abdomen: Bowel sounds present. Nontender, except at the lower right quadrant suprapubic area. Bowel sounds were present. Femoral pulse is unable to be palpated. Distal pulses are markedly diminished in the lower extremity. He had 2+ radial pulses. Motor strength 5/5 bilaterally. Deep tendon reflexes 2/4. Alert and oriented times three. No edema. Lower extremities: Negative Homans's sign. DIAGNOSTIC STUDIES/LAB DATA: White count 11.4 yesterday, 10.7 today; platelet count 138; MCV elevated at 95. Sodium 132; potassium 4.5; bicarb was 16 yesterday, up to 19 today; BUN 15; creatinine 1.12; magnesium low at 1.6 and is being supplemented; troponin 0.01, 0.02, 0.02; albumin low at 3; TSH normal; free T4 normal. EKG revealed A-fib with a rapid ventricular response in the 130s with ST-T changes, diffusely more prominent T-wave inversions anterior. EKG from yesterday revealed a sinus rhythm with T-wave inversions anterolaterally, counter clockwise progression. Echocardiogram from today revealed hyperdynamic LV function. IMPRESSION/RECOMMENDATIONS: My impression is that Mr. Pollock has an abdominal abscess and has developed rapid A-fib which is asymptomatic, but may be compromising cardiac output due to poor rate control and possible ongoing infection. Given he is unaware of the rhythm, it is possible that this has happened before. It could be the first episode in the setting of infection and pain. In any event, I recommend the following. In order to stabilize his hemodynamics and improve cardiac output, I suggest an attempt at TE guided cardioversion. I explained that this may or may not result in conversion maintenance of sinus rhythm. Temporarily may benefit from IV Amiodarone to try to maintain the sinus rhythm. The risks and benefits of Amiodarone, including but not limited to thyroid disease and lung disease were discussed. I would replaced his electrolytes as you are doing. Treat his underlying infection as you are doing. Would hold is Lisinopril for now as you are doing to allow his blood pressure to improve. Would continue IV Heparin and aspirin as you are doing. At some point, I would suggest a stress test to evaluate for coronary artery disease, perhaps with a pharmacologic stress test. If you cannot, achieve target heart rate. I strongly advise that he discontinue tobacco use. I did advise that he discontinue caffeinated beverage use. Will attempt to try to control his heart rate with IV Diltiazem if his blood pressure will allow. I did recommend a DESTINEE guided cardioversion because of his CHADs-VASc2 score of 2 and since he is asymptomatic in A-fib, the unknown frequency and duration of his A-fib. Further recommendation will plan on his clinical course. [id number]/[facility] #: [id number] ALIYAH
[2019-12-01 11:47] LABS: Activated Partial Thrombo Time 96.3 seconds (26.0-38.0); INR 1.68 (0.82-1.09)
[2019-12-01] MEDS ORDERED: Amiodarone 360 MG IVPREMIX* 0 MG/0 ML BAG IV ONE (12:21)
[2019-12-01] MEDS ORDERED: Amiodarone 150 MG IVPREMIX* 150 MG/100 ML BAG IV ONE ×2 (12:24→12:27)
[2019-12-01] MEDS ORDERED: Amiodarone 360 MG IVPREMIX* 360 MG/200 ML BAG IV ONE ×2 (12:28→12:53)
[2019-12-01] MEDS ORDERED: Metoprolol Tartrate IV* 1 MG/ML 5 ML VIAL ONE (12:53)
--- NOTE | 2019-12-01 13:03 | CARD ---
CC: Cedrick Jones MD CARDIOLOGY PROCEDURE NOTE: DATE OF PROCEDURE: 12/01/19 REASON FOR PROCEDURE: AFib. INDICATIONS: This is a 69-year-old gentleman who presented with abdominal pain, found to have abdomi nal abscess, and was started on antibiotics. He developed atrial fibrillation with rapid ventricular response, which has not been well controlled despite IV metoprolol, IV digoxin, and IV diltiazem. DESCRIPTION OF PROCEDURE: Informed consent was obtained. A transesophageal echocardiogram was perfo rmed with 3 mg of Versed and 25 mcg of fentanyl. The transesophageal echocardiogram revealed no evid ence of intracardiac thrombus and normal LV function, trace MR. A single synchronized biphasic shock of 200 Joules was applied with transient conversion to sinus rhythm and then recurrence of AFib. A s econd 200 Joule shock was applied, again with transient sinus rhythm and then recurrence of atrial fi brillation. IMPRESSION: Cardioversion attempted x2, unable to maintain sinus rhythm. PLAN: We will load with amiodarone and consider a repeat attempt at cardioversion if he fails to con vert to sinus rhythm. [id number]/[facility] #: [id number]
--- NOTE | 2019-12-01 13:10 | TEE ---
*[facility]* [place] [address] Fax #: [phone] Transesophageal Echocardiogram Patient: Lowell Pollock : 1950 Study Date: 12/01/2019 Age: 69 Gender: M HR: 125 bpm Height: 70 in /177.8 cm BSA: 2.09 m^2 Weight: 191.6 lb /87.1 kg BMI: 27.5 kg/m^2 *Herb Doctor: * Radha Crocker *Referring Physician: * Cedrick Jones MD *Reading Physician: * Cedrick Jones MD Indications: Atrial Fibrillation. History: Atrial fibrillation. Risk factors: Current tobacco use. Hypertension. Family history is significant for coronary artery disease. Study data: Diagnostic Transesophageal Echocardiogram Consent: The risks and benefits of the procedure, including alternatives were discussed with the patient and/or their health care insurance claims representative and written informed consent was obtained. Procedure: Initial setup: The patient was brought to the laboratory in the fasting state.Intravenous access was obtained. Surface ECG leads, heart rate, heart rhythm, blood pressure measurements, pulse oximetric signals, and mainstream end-tidal CO2 tracings were monitored throughout the procedure. Sedation. Moderate sedation was administered by nursing staff. History and physical as well as labs were reviewed. An oral bite block was inserted for protection of oral dentition. The patient was placed in the left lateral decubitus position. Topical anesthesia was obtained using viscous lidocaine. A transesophageal probe was inserted by the attending all source collection manager. without difficultyTransesophageal echocardiography was performed, image quality was excellent, and all standard views were attempted within the limitations of patient tolerance and safety. Multiple 2D, color flow Doppler and spectral Doppler images were obtained. The transesophageal probe was removed. Location: Procedure room. Patient status: Inpatient. Patient room number: 431. Study completion: The patient tolerated the procedure well. There were no complications. Agitated Saline was not injected. Administered medications: Midazolam, 3mg. Fentanyl, 25mcg. Findings Left ventricle: The cavity size is normal. Systolic function is hyperdynamic. The estimated ejection fraction is 65-70%. There is no evidence of a thrombus. Right ventricle: The cavity size is normal. Systolic function is normal. Ventricular septum: The ventricular septum is normal. Left atrium: The appendage is morphologically a left appendage. There is no evidence of a thrombus in the atrial cavity or appendage. Right atrium: The atrium is normal in size. Atrial septum: No defect or patent foramen ovale is identified. Mitral valve: The valve is structurally normal. There is no evidence of a vegetation. There is trace regurgitation. Aortic valve: The valve is structurally normal. The valve is trileaflet. Cusp separation is normal. There is no evidence of a vegetation. There is no evidence of stenosis. There is no significant regurgitation. Tricuspid valve: The valve is structurally normal. There is no evidence of a vegetation. There is trace regurgitation. Pulmonic valve: The valve is structurally normal. There is no evidence of a vegetation. There is trace regurgitation. Pericardium: There is no significant pericardial effusion. Pulmonary arteries: Systolic pressure can not be accurately estimated. Systemic veins: Superior vena cava: The vessel is appears normal. Pulmonary veins: The Pulmonary veins appear normal. Prepared and electronically signed by Cedrick Jones MD 12/01/2019 13:09
[2019-12-01] MEDS ORDERED: Amiodarone TAB* 400 MG PO ONE (13:23)
--- NOTE | 2019-12-01 13:28 | CARD ---
PROCEDURE NOTE: DATE OF PROCEDURE: 12/01/19 PROCEDURE: Cardioversion. INDICATION: Atrial fibrillation. DESCRIPTION OF PROCEDURE: This is a 69-year-old gentleman who presented with abdominal pain and abscess and went into AFib last night with difficult to control atrial fibrillation. A transesophageal echocardiogram-guided cardioversion was attempted earlier this morning. At that time, he was unable to convert to and maintain sinus rhythm. He was loaded with amiodarone 150 mg over approximately 10 minutes and repeat attempt at cardioversion was performed. He received 2 mg of Versed and 25 mcg of fentanyl before the second attempt. A synchronized biphasic shock 200 Joules was applied with transient conversion to sinus rhythm and then resumption of what appeared to be atrial flutter. A second attempt at cardioversion resulted in similar episodes of sinus rhythm followed by atrial flutter. IMPRESSION: Cardioversion to sinus rhythm but unable to maintain sinus rhythm for prolonged periods of time. The patient will be continued to manage medically with additional amiodarone and IV metoprolol as needed. If he fails to convert to and maintain sinus rhythm, we will consider another attempt tomorrow. [id number]/[facility] #: [id number] ALIYAH
[2019-12-01] MEDS ORDERED: Amiodarone TAB* 200 MG ONE (13:49)
[2019-12-01] MEDS: cefTRIAXone(*) 1 GM in NS 0.9% 50 ML* 50 ML IVPB SCH (13:57)
--- NOTE | 2019-12-01 16:24 | PN ---
Subjective Date of Service: 12/01/19 Interval History: Pt c/o lower abd pain, no CP, no SOB Objective Active Medications: Acetaminophen (Tylenol Tab*) 650 mg PO Q4H PRN PRN Reason: MILD PAIN or TEMP > 100.4 Al Hydrox/Mg Hydrox/Simethicone (Maalox Plus*) 30 ml PO Q6H PRN PRN Reason: INDIGESTION Amiodarone HCl (Cordarone Tab*) [address] [facility] Aspirin (Aspirin Ec Tab*) [address] [facility] Last Admin: 12/01/19 08:27 Dose: 81 mg Heparin Sodium (Porcine) (Heparin Vial(*)) 0 units IV .BOLUS PRN PRN Reason: HEPARIN DRIP PROTOCOL Last Admin: 12/01/19 05:42 Dose: 6,100 units Heparin Sodium/Dextrose (Heparin Drip 25,000 Units(*)) 25,000 units in 500 mls @ 0 mls/hr IV PER RATE [facility]; Protocol Last Admin: 12/01/19 05:43 Dose: 26 mls/hr Ceftriaxone Sodium 1 gm/ (Sodium Chloride) 50 mls @ 100 mls/hr IVPB DAILY@1400 [facility] Last Admin: 12/01/19 13:57 Dose: 100 mls/hr Amiodarone HCl (Nexterone 360 Mg/200 Ml Ivpremix*) 360 mg in 200 mls @ 33.333 mls/hr IV ONCE ONE Stop: 12/01/19 18:27 Last Admin: 12/01/19 13:00 Dose: 33.333 mls/hr Metronidazole/Sodium Chloride (Flagyl 500 Mg Ivpb*) 500 mg in 100 mls @ 100 mls /hr IVPB 0630,1430,2230 [facility] Last Admin: 12/01/19 15:12 Dose: 100 mls/hr Sodium Chloride (Ns 0.9% 1000 Ml) 1,000 mls @ 75 mls/hr IV PER RATE [facility] Morphine Sulfate (Morphine Inj (Syringe))*) 2 mg IV Q2H PRN PRN Reason: severe pain breakthrough Last Admin: 12/01/19 06:20 Dose: 2 mg Nicotine (Nicotine Patch 14 Mg/24 Hr*) [address] [facility] Last Admin: 12/01/19 08:26 Dose: 1 patch Ondansetron HCl (Zofran Inj*) 4 mg IV Q4H PRN PRN Reason: NAUSEA/VOMITING Oxycodone HCl (Roxycodone Tab*) 10 mg PO Q4H PRN PRN Reason: PAIN - SEVERE Last Admin: 12/01/19 02:01 Dose: 10 mg Oxycodone/Acetaminophen (Percocet 5/325 Tab*) 1 tab PO Q4H PRN PRN Reason: PAIN - SEVERE Last Admin: 12/01/19 06:20 Dose: 1 tab Pharmacy Profile Note (Nicotine Patch Removal Note*) 1 note PATCH OFF 0900 [facility] Last Admin: 12/01/19 08:33 Dose: 1 note Vital Signs - 8 hr 12/01/19 12/01/19 12/01/19 08:26 08:30 10:40 Temperature Pulse Rate 153 Respiratory 16 Rate Blood Pressure 108/72 (mmHg) O2 Sat by Pulse Oximetry 12/01/19 12/01/19 12/01/19 10:44 11:07 11:12 Temperature Pulse Rate 145 121 127 Respiratory 18 13 15 Rate Blood Pressure 106/74 95/72 (mmHg) O2 Sat by Pulse 93 92 Oximetry 12/01/19 12/01/19 12/01/19 11:16 11:22 11:27 Temperature Pulse Rate 135 127 Respiratory Rate Blood Pressure 109/81 113/78 121/73 (mmHg) O2 Sat by Pulse 95 96 Oximetry 12/01/19 12/01/19 12/01/19 11:32 11:37 11:42 Temperature Pulse Rate 121 131 Respiratory Rate Blood Pressure 122/88 114/82 106/67 (mmHg) O2 Sat by Pulse 97 95 Oximetry 12/01/19 12/01/19 12/01/19 11:47 11:52 11:57 Temperature Pulse Rate 132 126 126 Respiratory Rate Blood Pressure 107/69 98/69 102/71 (mmHg) O2 Sat by Pulse 95 95 96 Oximetry 12/01/19 12/01/19 12/01/19 12:00 12:02 12:06 Temperature Pulse Rate 138 138 136 Respiratory Rate Blood Pressure 122/97 110/61 (mmHg) O2 Sat by Pulse 96 95 95 Oximetry 12/01/19 12/01/19 12/01/19 12:07 13:00 14:00 Temperature Pulse Rate 132 109 71 Respiratory Rate Blood Pressure 86/57 (mmHg) O2 Sat by Pulse 94 95 97 Oximetry 12/01/19 14:49 Temperature 98.1 F Pulse Rate 76 Respiratory 16 Rate Blood Pressure 118/61 (mmHg) O2 Sat by Pulse 97 Oximetry Oxygen Devices in Use Now: None Appearance: 69 yo M in nAD, aAOx3 Eyes: No Scleral Icterus, PERRLA Ears/Nose/Mouth/Throat: NL Teeth, Lips, Gums, Mucous Membranes Moist Neck: NL Appearance and Movements; NL JVP, Trachea Midline Respiratory: Symmetrical Chest Expansion and Respiratory Effort, Clear to Auscultation Cardiovascular: NL Sounds; No Murmurs; No JVD, RRR Abdominal: - - soft, tender in RLQ and suprapubic area, no rebound, no guarding , BS+ Lymphatic: No Cervical Adenopathy Extremities: No Edema Skin: No Rash or Ulcers, No Nodules or Sclerosis Neurological: Alert and Oriented x 3, NL Muscle Strength and Tone Result Diagrams: 12/01/19 05:36 12/01/19 05:36 Microbiology and Other Data: Microbiology 11/30/19 08:22 Aerobic Blood Culture - Preliminary Blood Venous No Growth Day 1 Anaerobic Blood Culture - Preliminary No Growth Day 1 11/30/19 08:11 Aerobic Blood Culture - Preliminary Blood Venous No Growth Day 1 Anaerobic Blood Culture - Preliminary No Growth Day 1 Assess/Plan/Problems-Billing Assessment: 69 yo M with h/o inguinal hernias, HTN presents with 10 days of lower abd pain with intra-abd abscess, then developed a. fib in the first day of [facility] stay - Patient Problems (1) Abdominal abscess Comment: at approx 4 cmx 6 cm in diam appreciate surgery consult cont Zosyn, clear liquid diet, gentle IVF (2) Fatty liver Comment: CT shows fatty infiltration of liver at 8 cm and liver cyst-to f/u with further liver rad eval as outpatient (3) Atrial fibrillation Comment: with RVR, onset night of 11/30/19, cardiverted 12/01/[address] Jones ([place]INEE , cardioversion) now in NSR, on Amiodarone cont heparin gtt (4) EKG abnormality Comment: deep inverted T waves in anterolateral leads on EKG will need stress test once medically appropiate and his abd infection is resolved (5) DVT prophylaxis Comment: heparin gtt Status and Disposition: inpatient
[2019-12-01] MEDS: NS 0.9% 1000 ML** 1,000 ML IV SCH (17:10)
[2019-12-01] MEDS: Amiodarone TAB* 200 MG PO SCH (21:00)
[2019-12-02] MEDS: Heparin DRIP 25,000 UNITS(*) 25,000 UNITS/500 ML BAG IV SCH (02:00)
[2019-12-02] MEDS: oxyCODONE TAB* 5 MG TAB PO PRN ×2 (03:13→16:18)
[2019-12-02] MEDS: Morphine INJ* 2 MG/ML 1 ML SYRINGE (TWO MG - NEW SYRINGE VERSION) IV PRN ×3 (03:13→22:40)
[2019-12-02 03:39] LABS: BUN/Creatinine Ratio 11.3 (8-20); Calcium 8.2 mg/dL (8.6-10.3); EGFR African American 75.9 (>60); EGFR Non-African American 62.7 (>60); Magnesium 1.7 mg/dL (1.9-2.7); Potassium 3.9 mmol/L (3.5-5.0)
[2019-12-02] MEDS ORDERED: Magnesium Sulfate 2 GM IV* 2 GM/50 ML BAG IVPB ONE (04:00)
[2019-12-02 04:53] LABS: ABS Eosinophils 0.1 10^3/ul (0-0.6); ABS Lymphocytes 0.8 10^3/ul (1.0-4.8); ABS Monocytes 0.6 10^3/ul (0-0.8); ABS Neutrophils 8.3 10^3/ul (1.5-7.7); Eosinophil % 0.8 %; Hematocrit 37 % (42-52); Hemoglobin 12.3 g/dL (14.0-18.0); Lymphocyte % 8.2 %; Mean Corpuscular HGB Conc 33 g/dL (31-36); Mean Corpuscular Hemoglobin 31 pg (27-31); Mean Corpuscular Volume 95 fL (80-94); Mean Platelet Volume 10.7 fL (7.4-10.4); Nucleated Red Blood Cells % 0.1; Platelet Count 149 10^3/uL (150-450); Red Blood Count 3.93 10^6 /uL (4.18-5.48); Red Cell Distribution Width 13 % (10-15); White Blood Count 9.9 10^3/uL (3.5-10.8)
[2019-12-02] MEDS: metroNIDAZOLE IV 500 MG/100ML* 500 MG/100 ML BAG IVPB SCH ×3 (06:04→22:32)
[2019-12-02] MEDS: NS 0.9% 1000 ML** 1,000 ML IV SCH ×2 (06:04→17:17)
[2019-12-02] MEDS ORDERED: Magnesium Sulfate IV* 3 GM in NS 0.9% 100 ML* 100 ML IVPB ONE (08:39)
[2019-12-02] MEDS: Nicotine PATCH 14 MG/24 HR* PATCH TRANSDERM SCH (09:19)
[2019-12-02] MEDS: Amiodarone TAB* 200 MG PO SCH (09:20)
[2019-12-02] MEDS: Aspirin EC TAB* 81 MG TAB.EC PO SCH (09:20)
[2019-12-02] MEDS: Nicotine Patch Removal NOTE PATCH OFF SCH (09:20)
--- NOTE | 2019-12-02 09:20 | PN ---
Subjective Date of Service: 12/02/19 Interval History: Patient seen for afib/rvr/atrial flutter. Patient currently in NSR after attempted cardioversions yesterday. Patient initially failed to convert to and maintain nsr with CV. Patient was loaded with amiodarone and 2 additional shocks prompted conversion to nsr with frequent runs of atrial flutter. He seems to have maintained nsr overnight. He denies cp, abdominal pain, or dyspnea. Medications Active Medications: Acetaminophen (Tylenol Tab*) 650 mg PO Q4H PRN PRN Reason: MILD PAIN or TEMP > 100.4 Al Hydrox/Mg Hydrox/Simethicone (Maalox Plus*) 30 ml PO Q6H PRN PRN Reason: INDIGESTION Amiodarone HCl (Cordarone Tab*) 200 mg PO BID [facility] Last Admin: 12/01/19 21:00 Dose: 200 mg Aspirin (Aspirin Ec Tab*) 81 mg PO DAILY [facility] Last Admin: 12/01/19 08:27 Dose: 81 mg Heparin Sodium (Porcine) (Heparin Vial(*)) 0 units IV .BOLUS PRN PRN Reason: HEPARIN DRIP PROTOCOL Last Admin: 12/01/19 21:01 Dose: 6,100 units Heparin Sodium/Dextrose (Heparin Drip 25,000 Units(*)) 25,000 units in 500 mls @ 0 mls/hr IV PER RATE [facility]; Protocol Last Admin: 12/02/19 02:00 Dose: 30 mls/hr Ceftriaxone Sodium 1 gm/ (Sodium Chloride) 50 mls @ 100 mls/hr IVPB DAILY@1400 [facility] Last Admin: 12/01/19 13:57 Dose: 100 mls/hr Metronidazole/Sodium Chloride (Flagyl 500 Mg Ivpb*) 500 mg in 100 mls @ 100 mls /hr IVPB 0630,1430,2230 [facility] Last Admin: 12/02/19 06:04 Dose: 100 mls/hr Sodium Chloride (Ns 0.9% 1000 Ml) 1,000 mls @ 75 mls/hr IV PER RATE [facility] Last Admin: 12/02/19 06:04 Dose: 75 mls/hr Magnesium Sulfate 3 gm/ Sodium (Chloride) 106 mls @ 53 mls/hr IVPB ONCE ONE Stop: 12/02/19 10:38 Morphine Sulfate (Morphine Inj (Syringe))*) 2 mg IV Q2H PRN PRN Reason: severe pain breakthrough Last Admin: 12/02/19 03:13 Dose: 2 mg Nicotine (Nicotine Patch 14 Mg/24 Hr*) 1 patch TRANSDERM DAILY [facility] Last Admin: 12/01/19 08:26 Dose: 1 patch Ondansetron HCl (Zofran Inj*) 4 mg IV Q4H PRN PRN Reason: NAUSEA/VOMITING Oxycodone HCl (Roxycodone Tab*) 10 mg PO Q4H PRN PRN Reason: PAIN - SEVERE Last Admin: 12/02/19 03:13 Dose: 10 mg Oxycodone/Acetaminophen (Percocet 5/325 Tab*) 1 tab PO Q4H PRN PRN Reason: PAIN - SEVERE Last Admin: 12/01/19 06:20 Dose: 1 tab Pharmacy Profile Note (Nicotine Patch Removal Note*) 1 note PATCH OFF 0900 [facility] Last Admin: 12/01/19 08:33 Dose: 1 note Objective Vital Signs: Temp Pulse Resp BP Pulse Ox 98.1 F 85 16 144/64 95 12/02/19 02:49 12/02/19 02:49 12/02/19 05:42 12/02/19 02:49 12/02/19 02:49 Oxygen Devices in Use Now: None Eyes: No Scleral Icterus Respiratory: Clear to Auscultation Cardiovascular: NL Sounds; No Murmurs; No JVD Abdominal: NL Sounds; No Tenderness; No Distention, No Hepatosplenomegaly Extremities: No Edema Laboratory Results: 12/02/19 03:07 12/02/19 03:07 INR (Anticoag Therapy) 1.68 (0.82-1.09) H 12/01/19 11:10 APTT 72.3 seconds (26.0-38.0) H 12/02/19 03:08 Total Bilirubin 0.50 mg/dL (0.2-1.0) 12/01/19 05:36 AST 11 U/L (13-39) L 12/01/19 05:36 ALT 7 U/L (7-52) 12/01/19 05:36 Alkaline Phosphatase 54 U/L (34-104) 12/01/19 05:36 Total Protein 6.5 g/dL (6.4-8.9) 12/01/19 05:36 Albumin 3.0 g/dL (3.2-5.2) L 12/01/19 05:36 Globulin 3.5 g/dL (2-4) 12/01/19 05:36 Albumin/Globulin Ratio 0.9 (1-3) L 12/01/19 05:36 TSH 2.12 mcIU/mL (0.34-5.60) 12/01/19 05:35 11/30/19 12/01/19 12/01/19 08:21 05:36 08:55 Troponin I 0.01 0.02 0.02 12/01/19 11:10 Troponin I 0.02 EKG Data: nsr with anterior t wave inversions. Assessment/Plan Abdominal abscess with newly noted afib/aflutter and anterior t changes now in nsr and improving. AFib/aflutter: Unclear if this episode was provoked by sepsis/pain or if he has silent afib given his lack of sx's. Plan: amiodarone 200 mg po qd for 2 weeks outpatient event monitor at some point to evaluate for silent afib metoprolol 25 mg po bid for bp/potential rate control. replace k to over 4 replace mag anticoagulation for 1 month given chads vasc 2 score of 2 consider changing IV heparin to Noac if no surgical interventions planned. avoid caffeine and alcohol. abnl ekg: anterior t wave changes without prior ekg neg troponins. nl wall motion on echo Plan: beta tyler outpatient stress nuclear at some point discontinue tobacco use. check lipids. ID as per Dr. Somers Counseling and/or Coordination of Care Minutes: 30+ minutes
[2019-12-02] MEDS ORDERED: Metoprolol Succinate XL TAB* 50 MG PO ONE (09:43)
[2019-12-02] MEDS ORDERED: Potassium Chloride* LIQUID 20 MEQ/15 ML UDC PO ONE (09:45)
[2019-12-02] MEDS ORDERED: Metoprolol Succinate XL TAB* 25 MG PO ONE (09:48)
--- NOTE | 2019-12-02 11:51 | PN ---
Progress Note - Progress Note Date of Service: 12/02/19 Note: Feeling much better this morning. Abdominal pain has improved significantly. BM yesterday. Tolerating clears. Denies chest pain or SOB. Afebrile. Talked with Dr Kay yesterday about drain and there does not appear to be a safe window. S/p cardioversion yesterday. Vital Signs - 12 hr Temp Pulse Resp BP Pulse Ox 12/02/19 08:00 18 96 12/02/19 07:18 98.7 F 79 18 132/64 96 12/02/19 05:42 16 12/02/19 04:29 16 12/02/19 03:13 16 12/02/19 02:49 98.1 F 85 14 144/64 95 Intake & Output 12/01/19 12/02/19 12/02/19 22:59 06:59 14:59 Intake Total 423 1357 480 Output Total 0 Balance 423 1357 480 General: NAD Abdomen: Soft, mildly distended and tympanitic. Mild tenderness to palpation in RLQ, no rebound or guarding. Neuro: Alert and oriented x3. Moves all extremities equally Laboratory Results - last 24 hr 12/02/19 12/02/19 12/02/19 02:14 03:07 03:07 WBC 9.9 RBC 3.93 L Hgb 12.3 L Hct 37 L MCV 95 H MCH 31 MCHC 33 RDW 13 Plt Count 149 L MPV 10.7 H Neut % (Auto) 84.5 Lymph % (Auto) 8.2 [place] % (Auto) 6.2 Eos % (Auto) 0.8 Baso % (Auto) 0.3 Absolute Neuts (auto) 8.3 H Absolute Lymphs (auto) 0.8 L Absolute Monos (auto) 0.6 Absolute Eos (auto) 0.1 Absolute Basos (auto) 0.0 Absolute Nucleated RBC 0.0 Nucleated RBC % 0.1 INR (Anticoag Therapy) APTT 88.8 H Sodium 131 L Potassium 3.9 Chloride 106 Carbon Dioxide 19 L Anion Gap 6 BUN 13 Creatinine 1.15 Est GFR ( Amer) 75.9 Est GFR (Non-Af Amer) 62.7 BUN/Creatinine Ratio 11.3 Glucose 110 H Calcium 8.2 L Magnesium 1.7 L Troponin I A&P 69M with intra-abdominal abscess likely from diverticular disease. Improved from yesterday. -Antibiotics per hospitalist/ID team. -Clear liquids, advance to full liquids as tolerated. Discussed with patient that he should follow a soft diet/low fiber diet until symptoms are gone. -Patient plans to follow up with Dr Lozada at [place] to discuss screening colonoscopy. I recommended f/u in clinic in about 2-3 weeks. The colonoscopy likely can not happen for another couple of months. -Please call with questions.
[2019-12-02 12:20] LABS: C Reactive Protein 293.28 mg/L (<8.01)
--- NOTE | 2019-12-02 12:35 | PN ---
Subjective Date of Service: 12/02/19 Interval History: Pt feels much better. his abd pain is still there, but much improved Objective Active Medications: Acetaminophen (Tylenol Tab*) 650 mg PO Q4H PRN PRN Reason: MILD PAIN or TEMP > 100.4 Al Hydrox/Mg Hydrox/Simethicone (Maalox Plus*) 30 ml PO Q6H PRN PRN Reason: INDIGESTION Amiodarone HCl (Cordarone Tab*) 200 mg PO DAILY [facility] Aspirin (Aspirin Ec Tab*) 81 mg PO DAILY [facility] Last Admin: 12/02/19 09:20 Dose: 81 mg Heparin Sodium (Porcine) (Heparin Vial(*)) 0 units IV .BOLUS PRN PRN Reason: HEPARIN DRIP PROTOCOL Last Admin: 12/01/19 21:01 Dose: 6,100 units Ceftriaxone Sodium 1 gm/ (Sodium Chloride) 50 mls @ 100 mls/hr IVPB DAILY@1400 [facility] Last Admin: 12/01/19 13:57 Dose: 100 mls/hr Metronidazole/Sodium Chloride (Flagyl 500 Mg Ivpb*) 500 mg in 100 mls @ 100 mls /hr IVPB 0630,1430,2230 [facility] Last Admin: 12/02/19 06:04 Dose: 100 mls/hr Sodium Chloride (Ns 0.9% 1000 Ml) 1,000 mls @ 75 mls/hr IV PER RATE [facility] Last Admin: 12/02/19 06:04 Dose: 75 mls/hr Metoprolol Succinate (Toprol Xl Tab*) 25 mg PO BID [facility] Morphine Sulfate (Morphine Inj (Syringe))*) 2 mg IV Q2H PRN PRN Reason: severe pain breakthrough Last Admin: 12/02/19 03:13 Dose: 2 mg Nicotine (Nicotine Patch 14 Mg/24 Hr*) 1 patch TRANSDERM DAILY [facility] Last Admin: 12/02/19 09:19 Dose: 1 patch Ondansetron HCl (Zofran Inj*) 4 mg IV Q4H PRN PRN Reason: NAUSEA/VOMITING Oxycodone HCl (Roxycodone Tab*) 10 mg PO Q4H PRN PRN Reason: PAIN - SEVERE Last Admin: 12/02/19 03:13 Dose: 10 mg Oxycodone/Acetaminophen (Percocet 5/325 Tab*) 1 tab PO Q4H PRN PRN Reason: PAIN - SEVERE Last Admin: 12/01/19 06:20 Dose: 1 tab Pharmacy Profile Note (Nicotine Patch Removal Note*) 1 note PATCH OFF 0900 [facility] Last Admin: 12/02/19 09:20 Dose: 1 note Vital Signs - 8 hr 12/02/19 12/02/19 12/02/19 05:42 07:18 08:00 Temperature 98.7 F Pulse Rate 79 Respiratory 16 18 18 Rate Blood Pressure 132/64 (mmHg) O2 Sat by Pulse 96 96 Oximetry Oxygen Devices in Use Now: None Appearance: 69 yo M in nAD, aAOx3 Eyes: No Scleral Icterus, PERRLA Ears/Nose/Mouth/Throat: NL Teeth, Lips, Gums, Mucous Membranes Moist Neck: NL Appearance and Movements; NL JVP, Trachea Midline Respiratory: Symmetrical Chest Expansion and Respiratory Effort, Clear to Auscultation Cardiovascular: NL Sounds; No Murmurs; No JVD, RRR Abdominal: - - RLQ abd tenderness, no rabound, no guarding, BS+ Extremities: No Edema Skin: No Rash or Ulcers Neurological: Alert and Oriented x 3, NL Muscle Strength and Tone Result Diagrams: 12/02/19 03:07 12/02/19 03:07 Microbiology and Other Data: Microbiology 11/30/19 08:22 Aerobic Blood Culture - Preliminary Blood Venous No Growth Day 1 Anaerobic Blood Culture - Preliminary No Growth Day 1 11/30/19 08:11 Aerobic Blood Culture - Preliminary Blood Venous No Growth Day 1 Anaerobic Blood Culture - Preliminary No Growth Day 1 Assess/Plan/Problems-Billing Assessment: 69 yo M with h/o inguinal hernias, HTN presents with 10 days of lower abd pain with intra-abd abscess, then developed a. fib in the first day of [facility] stay - Patient Problems (1) Abdominal abscess Comment: at approx 4 cmx 6 cm in diam appreciate surgery consult cont Zosyn, advance diet to full D/w Dr. Kay and ID: CT abd with contrast ordered to eval for potential bx today, heparin gtt off for now (2) Fatty liver Comment: CT shows fatty infiltration of liver at 8 cm and liver cyst-to f/u with CT today (3) Atrial fibrillation Comment: with RVR, onset night of 11/30/19, cardiverted 12/01/[address] Jones ([place]STINEE , cardioversion) now in NSR, on Amiodarone heparin gtt held for poss bx today (4) EKG abnormality Comment: deep inverted T waves in anterolateral leads on EKG will need stress test once medically appropiate and his abd infection is resolved (5) DVT prophylaxis Comment: heparin gtt held, SCD's Status and Disposition: inpatient
[2019-12-02] MEDS ORDERED: Iohexol 300* (CONTRAST) 10 ML SDV IV ONE (12:38)
[2019-12-02] MEDS: cefTRIAXone(*) 1 GM in NS 0.9% 50 ML* 50 ML IVPB SCH (13:51)
[2019-12-02] MEDS ORDERED: Digoxin IV* 0.5 MG/2 ML AMP (0.25 MG/ML) IV SLOW PU ONE (16:01)
[2019-12-02] MEDS ORDERED: Metoprolol Tartrate IV* 1 MG/ML 5 ML VIAL IV ONE (16:01)
[2019-12-02] MEDS: Metoprolol Succinate XL TAB* 25 MG PO SCH ×2 (16:18→20:44)
[2019-12-02] MEDS ORDERED: Amiodarone TAB* 200 MG PO ONE (16:28)
--- NOTE | 2019-12-02 16:55 | PN ---
Progress Note - Progress Note Date of Service: 12/02/19 Note: Pt returned from CT and started experiencing significant increase in pain, Got back in A. fib with RVR. Denies CP/SOB, c/o RLQ pain. Spoke with radiology: pt' s abscess appears periappendiceal. Spoke with DR. Durand-one of surgical providers will see pt due to increase in pain and updated CT findings. Pt was treated with Digoxin 0.5 mg and Lopressor 5 mg IV. still in a. fib with RVR. D/w DR. Jones: will tx with Amiodarone -additional PO dose of 400 mg, start Cardizem gtt and restart heparin gtt. On abd exam : tender in RLQ, no rebound, no guarding, BS hypoactive throughout awaiting re-eval by surgery
[2019-12-02] MEDS ORDERED: Diltiazem IV BAG* D5W Premix 125 MG/125 ML BAG IV SCH (17:00)
[2019-12-02] MEDS ORDERED: Heparin DRIP 25,000 UNITS(*) 25,000 UNITS/500 ML BAG IV SCH (17:00)
--- NOTE | 2019-12-02 17:03 | PN ---
Progress Note - Progress Note Date of Service: 12/02/19 Note: Reviewed CT scan performed today. The collection appears about the same, although there is concern that the collection is adjacent to the appendix which looks abnormal. If the intra-abdominal abscess is actually due to appendicitis and not diverticulitis, the management remains the same with antibiotics and possible drain, unless he has peritonitis or evidence of shock. It appears that there is not a safe window to place a percutaneous drain. Clinically, the patient has been afebrile and WBC is normal. CRP is elevated to 293 although it has not been checked before today. The patient is back in a fib with RVR, which may be a result of pain. He reported significant improvement in pain this morning, but reportedly has increased pain now. Continue antibiotics for now. Rd PEARSON will examine the patient. The patient was signed out to Dr Mcdonald who is senior science consultant this weekend.
[2019-12-02 17:32] LABS: ABS Basophils 0.1 10^3/ul (0-0.2); ABS Eosinophils 0.1 10^3/ul (0-0.6); ABS Lymphocytes 0.6 10^3/ul (1.0-4.8); ABS Monocytes 0.7 10^3/ul (0-0.8); ABS Neutrophils 9.9 10^3/ul (1.5-7.7); Eosinophil % 0.5 %; Hematocrit 41 % (42-52); Hemoglobin 13.5 g/dL (14.0-18.0); Mean Corpuscular HGB Conc 33 g/dL (31-36); Mean Corpuscular Hemoglobin 31 pg (27-31); Mean Corpuscular Volume 94 fL (80-94); Platelet Count 167 10^3/uL (150-450); Red Blood Count 4.34 10^6 /uL (4.18-5.48); Red Cell Distribution Width 13 % (10-15); White Blood Count 11.2 10^3/uL (3.5-10.8)
--- NOTE | 2019-12-02 17:41 | CONS ---
CONSULTATION REPORT: DATE OF CONSULT: 12/02/19 PRIMARY CARE PROVIDER: Dr. Jose A Alves. PROVIDER REQUESTING CONSULTATION: Dr. Dilia Somers. CONSULTING SERVICE: Infectious Diseases. PROVIDER: Hayden Le NP. ATTENDING PROVIDER: Dr. Quinton Thomas.* (DICTATED BY HAYDEN LE NP) REASON FOR CONSULT: Abdominal abscess. IMPRESSION: 1. Abdominal abscess. The patient is noted to have a right mid to lower abdominal fluid collection suspicious for an abdominal abscess on CT scan done at [facility]. This measures 6.0 x 4.0 x 4.6 cm in size with some stranding of the surrounding mesentery. Additionally, the patient is noted to have 2 low-density lesions in the left lobe of the liver with the larger one measuring 1.4 cm and probably cyst. Additionally, there is an asymmetric decreased density in the right lobe of the liver measuring approximately 8.8 x 6.3 x 6.0 cm in size suggesting fatty infiltrate. The patient initially presented to [facility] with leukocytosis with a white blood cell count of 11,400. No CRP has been obtained. Liver function tests are not elevated. There is concern for a possible liver abscess in addition to the abdominal abscess. The patient does report some abdominal pain in the mid lower abdomen that is also towards the right. He has been afebrile. He is being followed by General Surgery. It is felt that the abscess is likely from diverticular disease as colonic diverticulosis was seen on the CT scan. 2. Peripheral arterial disease. 3. Right inguinal hernia. RECOMMENDATIONS/PLAN: Recommend continuing ceftriaxone 2 g IV daily in addition to Flagyl 500 mg IV twice daily. Will add a CRP to today's labs. The plan for discharge will be ceftriaxone 2 g IV daily in addition to Flagyl 500 mg by mouth twice daily for 1 month. He will need a followup CT scan near the end of his antibiotics with a followup with ID in 1 to 2 weeks. Outpatient telemedicine is okay for the patient. Recommend discussing with Radiology whether they feel they are able to aspirate this abdominal fluid collection for culture. Additionally, recommend further imaging of the liver to evaluate if the larger abnormality seen is in fact a fatty infiltration versus liver abscess. We will follow the patient's cultures outpatient and can adjust his antibiotics accordingly. HISTORY OF PRESENT ILLNESS: Mr. Pollock is a 69-year-old male with past medical history significant for hypertension, peripheral arterial disease, and tobacco abuse, who presented to the [facility] Emergency Room with complaints of severe abdominal pain. He has been having right lower quadrant abdominal pain for 10 days at the site of a chronic right inguinal hernia that he had for 12 years. He had recently seen Dr. Mcdonald outpatient who had reduced the hernia in the office on 11/29/19. His pain was improved, but then when he got home his pain had worsened and was then radiating towards his umbilicus. He had had several episodes of diarrhea the night prior with nausea, diaphoresis, lightheadedness, and had decided to present to the emergency room for evaluation. He denied any fevers, chills, shortness of breath, syncope, urinary symptoms, nausea, vomiting, diarrhea. He did report a poor appetite. While in the [facility] Emergency Room, he was noted to be hypotensive with systolic blood pressure in the 90s and received a fluid bolus for this. The case was discussed with General Surgery, who recommended the patient be sent to [facility] for further evaluation. While at [facility], he had a CT of his chest showing no acute findings. Additionally, he had an abdomen and pelvis CT with contrast showing 2 low-density lesions of the left lobe of the liver with the larger one measuring 1.4 cm, probably a cyst and an area of asymmetric decreased density in the right lobe of the liver measuring approximately 8.8 x 6.3 x 6 cm suggesting a fatty infiltration. Additionally, he was noted to have a heterogeneous soft tissue mass in the right mid to lower abdomen suspicious for an abscess. This measured 6.0 x 4.0 x 4.6 cm. Colonic diverticulosis and bilateral renal cysts. While in the emergency room, he was noted to have systolic blood pressures in the 120s to 130s. He was seen in consultation by Dr. Rosana Durand with General Surgery. She recommended conservative management with antibiotics. There was concern for sepsis as the patient was meeting SIRS criteria with tachycardia, tachypnea, hypotension, and the emergency room provider referred the patient to the hospitalist for admission. While in the hospital, the patient has been afebrile. He has had intermittent tachycardia. He had gone into atrial fibrillation with RVR and required cardioversion. Additionally, he was noted to have an acute kidney injury. His leukocytosis on presentation has resolved. He denies fevers, chills, chest pain , nausea, vomiting, diarrhea. He continues to have lower abdominal pain at the midline and towards the right side. This is worse with palpation, but he feels overall it is improving since his admission. He denies back pain, muscle pain, joint pain, urinary symptoms. PAST MEDICAL HISTORY: 1. Peripheral arterial occlusive disease. 2. Hypertension. 3. Tobacco dependence. 4. Obesity. 5. Right inguinal hernia. PAST SURGICAL HISTORY: Status post right knee surgery approximately 50 years ago. MEDICATIONS: Home medications: 1. Aspirin 81 mg by mouth daily. 2. Lisinopril 20 mg by mouth daily. 3. Naproxen 220 mg by mouth daily as needed for pain. Hospital medications: 1. Acetaminophen 650 mg by mouth every 4 hours as needed for fever or pain. 2. Maalox Plus 30 mL by mouth every 6 hours as needed for indigestion. 3. Amiodarone 200 mg by mouth daily. 4. Aspirin 81 mg by mouth daily. 5. Ceftriaxone 1 g IV daily. 6. Metoprolol succinate 25 mg by mouth twice daily. 7. Flagyl 500 mg IV every 8 hours. 8. Morphine sulfate 2 mg IV every 2 hours as needed for pain. 9. Nicotine patch 14 mg transdermal daily. 10. Zofran 4 mg IV every 4 hours as needed for nausea. 11. Oxycodone 10 mg by mouth every 4 hours as needed for pain. 12. Percocet 5/325 one tablet by mouth every 4 hours as needed for pain. 13. Sodium chloride 75 mL intravenously an hour. ALLERGIES: No known drug allergies. FAMILY HISTORY: Father at age 47 due to "heart problems." Mother at age 75 due to lung cancer. SOCIAL HISTORY: He is retired. Denies recreational drug use. He is a current smoker, smoking half a pack a day for the last 50 years. He occasionally drinks alcohol. REVIEW OF SYSTEMS: I performed a 10-point review of systems. All the pertinent positives and negatives are mentioned in the history of present illness. The remaining review of systems are negative. PHYSICAL EXAM: Vital Signs: Temperature 97.8, heart rate 79, respiratory rate 16, O2 sat 95% on room air, blood pressure 127/66. General Appearance: The patient is alert, appears to be in no acute distress. Head: Normocephalic, atraumatic. EENT: Extraocular movements intact. No subconjunctival hemorrhage. Moist mucous membranes. Neck: Supple. No lymphadenopathy. Neurological: Alert and oriented. Cranial nerves II through XII are grossly intact. He moves all extremities. Cardiovascular: Regular rate and rhythm. S1 , S2 present. No murmurs, rubs, or gallops heard. Respiratory: No accessory muscle use. The lungs are clear to auscultation bilaterally. Abdomen: Bowel sounds are present. Abdomen is soft. Tender in the lower mid abdomen and the right lower abdomen with palpation. Abdomen is large, nondistended. Extremities : No lower extremity edema. Musculoskeletal: No clubbing or cyanosis noted. Exhibits good strength in all extremities. Psychological: Calm and cooperative. Skin: No rashes or abnormalities seen on the exposed skin. DIAGNOSTIC STUDIES/LAB DATA: Sodium 131, potassium 3.9, chloride 106, CO2 of 19 , BUN 13, creatinine 1.15, glucose 110. White blood cell count 9.9, hemoglobin 12.3, hematocrit 37, and platelet count 149. Blood cultures with no growth on day 2. Stool culture negative, PCR negative for C. diff. Please see impression and recommendations outlined above. Recommendations have been discussed with Dr. Dilia Somers. Thank you for asking us to see Mr. Pollock in consultation. The case has been reviewed with my attending Dr. Quinton Thomas, who agrees with the plan of care. Reviewed by CELESTINO WALTON 12/06/19 1910 [id number]/[facility] #: [id number] [facility]
[2019-12-02 17:47] LABS: EGFR African American 83.3 (>60); EGFR Non-African American 68.9 (>60)
--- NOTE | 2019-12-02 17:59 | PN ---
Progress Note - Progress Note Date of Service: 12/02/19 Note: Surgery Progress: Patient having increased pain since his scan (see Dr. Durand's note). He denies N/ V but is somewhat anorexic. He has continued to pass both flatus and loose stool. VS: Vital Signs - 8 hr 12/02/19 12/02/19 12/02/19 11:09 16:17 16:18 Temperature 97.8 F Pulse Rate 79 132 Respiratory 16 16 Rate Blood Pressure 127/66 (mmHg) O2 Sat by Pulse 95 Oximetry 12/02/19 17:06 Temperature Pulse Rate Respiratory 18 Rate Blood Pressure (mmHg) O2 Sat by Pulse Oximetry Heart: irreg Lungs: clear ant Abd: obese; mildly distended. +BS. Soft w/ moderate tenderness RLQ and right hypogastric areas, without guarding. Remainder, soft and nontender, though the right inguinal hernia is mildly tender. CT reviewed repeat WBC 11.2 A: possible "missed" appendicitis w/ abscess, currently on ceftriaxone and flagyl, with initial improvement, but now w/ increased pain, leukocytosis, and return of afib after cardioversion 11/30. P: discussed w/ Dr. Mcdonald and Dr. Somers. Cont IV abx. Will change to clear liquids only. Repeat labs and exam in a.m., with possibility of OR ( laparoscopic appendectomy) in a.m. based on clinical course. Patient understands.
[2019-12-02] MEDS ORDERED: Heparin VIAL(*) 5000 UNITS/ML VIAL (FIVE THOUSAND) IV SCH (18:00)
[2019-12-02] MEDS: oxyCODONE/Acetamin 5/325 MG* TAB PO PRN (20:44)
[2019-12-03] MEDS: NS 0.9% 1000 ML** 1,000 ML IV SCH (05:14)
--- NOTE | 2019-12-03 05:28 | PN ---
Hospitalist Progress Note Date of Service: 12/03/19 called by nursing for heart rate 64-66 afib with 2.31 second pause. Cardizem stopped will monitor.
[2019-12-03 06:39] LABS: ABS Eosinophils 0.1 10^3/ul (0-0.6); ABS Lymphocytes 0.8 10^3/ul (1.0-4.8); ABS Monocytes 0.8 10^3/ul (0-0.8); ABS Neutrophils 8.4 10^3/ul (1.5-7.7); Eosinophil % 0.9 %; Hematocrit 38 % (42-52); Hemoglobin 13.1 g/dL (14.0-18.0); Lymphocyte % 8.1 %; Mean Corpuscular HGB Conc 34 g/dL (31-36); Mean Corpuscular Hemoglobin 32 pg (27-31); Mean Corpuscular Volume 93 fL (80-94); Mean Platelet Volume 10.6 fL (7.4-10.4); Platelet Count 160 10^3/uL (150-450); Red Blood Count 4.11 10^6 /uL (4.18-5.48); Red Cell Distribution Width 13 % (10-15); White Blood Count 10.2 10^3/uL (3.5-10.8)
[2019-12-03] MEDS: metroNIDAZOLE IV 500 MG/100ML* 500 MG/100 ML BAG IVPB SCH ×3 (06:48→23:35)
[2019-12-03 06:56] LABS: BUN/Creatinine Ratio 8.7 (8-20); Calcium 7.9 mg/dL (8.6-10.3); EGFR African American 86.1 (>60); EGFR Non-African American 71.2 (>60); Magnesium 1.9 mg/dL (1.9-2.7)
[2019-12-03] MEDS: Metoprolol Succinate XL TAB* 25 MG PO SCH ×2 (08:22→20:27)
[2019-12-03] MEDS ORDERED: Magnesium Sulfate 2 GM IV* 2 GM/50 ML BAG IVPB ONE (08:30)
--- NOTE | 2019-12-03 10:40 | PN ---
Subjective Date of Service: 12/03/19 Interval History: Patient seen for afib/rvr/atrial flutter. Patient currently in NSR but developed recurrent afib with rvr yesterday and overnight. He denies cp, dyspnea, or palpitations but continues to c/o abdominal pain and diarrhea. no orthopnea. Medications Active Medications: Acetaminophen (Tylenol Tab*) 650 mg PO Q4H PRN PRN Reason: MILD PAIN or TEMP > 100.4 Al Hydrox/Mg Hydrox/Simethicone (Maalox Plus*) 30 ml PO Q6H PRN PRN Reason: INDIGESTION Amiodarone HCl (Cordarone Tab*) 200 mg PO DAILY [facility] Aspirin (Aspirin Ec Tab*) 81 mg PO DAILY [facility] Last Admin: 12/02/19 09:20 Dose: 81 mg Heparin Sodium (Porcine) (Heparin Vial(*)) 0 units IV .FOR HEPARIN BOLUSES [facility] Last Admin: 12/03/19 00:44 Dose: 3,050 units Metronidazole/Sodium Chloride (Flagyl 500 Mg Ivpb*) 500 mg in 100 mls @ 100 mls /hr IVPB 0630,1430,2230 [facility] Last Admin: 12/03/19 06:48 Dose: 100 mls/hr Ceftriaxone Sodium 2 gm/ (Sodium Chloride) 100 mls @ 200 mls/hr IVPB DAILY@ 1400 [facility] Sodium Chloride (Ns 0.9% 1000 Ml) 1,000 mls @ 100 mls/hr IV PER RATE [facility] Last Admin: 12/03/19 05:14 Dose: 100 mls/hr Metoprolol Succinate (Toprol Xl Tab*) 25 mg PO BID [facility] Last Admin: 12/03/19 08:22 Dose: Not Given Morphine Sulfate (Morphine Inj (Syringe))*) 2 mg IV Q2H PRN PRN Reason: severe pain breakthrough Last Admin: 12/02/19 22:40 Dose: 2 mg Nicotine (Nicotine Patch 14 Mg/24 Hr*) 1 patch TRANSDERM DAILY [facility] Last Admin: 12/02/19 09:19 Dose: 1 patch Ondansetron HCl (Zofran Inj*) 4 mg IV Q4H PRN PRN Reason: NAUSEA/VOMITING Oxycodone HCl (Roxycodone Tab*) 10 mg PO Q4H PRN PRN Reason: PAIN - SEVERE Last Admin: 12/02/19 16:18 Dose: 10 mg Oxycodone/Acetaminophen (Percocet 5/325 Tab*) 1 tab PO Q4H PRN PRN Reason: PAIN - SEVERE Last Admin: 12/02/19 20:44 Dose: 1 tab Pharmacy Profile Note (Nicotine Patch Removal Note*) 1 note PATCH OFF 0900 CECIL Last Admin: 12/02/19 09:20 Dose: 1 note Objective Vital Signs: Temp Pulse Resp BP Pulse Ox 98 F 77 18 106/63 97 12/03/19 07:15 12/03/19 07:15 12/03/19 08:00 12/03/19 07:15 12/03/19 07:15 Oxygen Devices in Use Now: None Appearance: wd wn obese nad Eyes: No Scleral Icterus Neck: - - noJVD Respiratory: Clear to Auscultation Cardiovascular: NL Sounds; No Murmurs; No JVD, RRR Abdominal: NL Sounds; No Tenderness; No Distention, No Hepatosplenomegaly, - - + bs mild tendernes in suprapubic area. Extremities: No Edema Laboratory Results: 12/03/19 05:10 12/03/19 05:10 INR (Anticoag Therapy) 1.68 (0.82-1.09) H 12/01/19 11:10 APTT 59.1 seconds (26.0-38.0) H 12/03/19 06:36 Total Bilirubin 0.50 mg/dL (0.2-1.0) 12/01/19 05:36 AST 11 U/L (13-39) L 12/01/19 05:36 ALT 7 U/L (7-52) 12/01/19 05:36 Alkaline Phosphatase 54 U/L (34-104) 12/01/19 05:36 Total Protein 6.5 g/dL (6.4-8.9) 12/01/19 05:36 Albumin 3.0 g/dL (3.2-5.2) L 12/01/19 05:36 Globulin 3.5 g/dL (2-4) 12/01/19 05:36 Albumin/Globulin Ratio 0.9 (1-3) L 12/01/19 05:36 TSH 2.12 mcIU/mL (0.34-5.60) 12/01/19 05:35 11/30/19 12/01/19 12/01/19 08:21 05:36 08:55 Troponin I 0.01 0.02 0.02 12/01/19 11:10 Troponin I 0.02 EKG Data: nsr with anterior st changes/t wave inversions. similar to 12/02/19 Assessment/Plan Abdominal abscess with newly noted afib/aflutter and anterior t changes now in nsr , persistent pain. AFib/aflutter: Unclear if this episode was provoked by sepsis/pain or if he has silent afib given his lack of sx's. Plan: continue amiodarone 200 mg po qd for 2 weeks outpatient event monitor at some point to evaluate for silent afib metoprolol 25 mg po bid for bp/potential rate control. replace k to over 4 will replace mag anticoagulation for 1 month given chads vasc 2 score of 2 IV heparin on hold pending decision on surgical intervention. avoid caffeine and alcohol. abnl ekg: anterior t wave changes without prior ekg neg troponins. nl wall motion on echo Plan: beta tyler outpatient stress nuclear at some point discontinue tobacco use. check lipids. ID as per Dr. Somers PREOP: Pt with abnl ekg but nl lv function and neg troponins. Given lack of cv sx's prior to admission and neg workup so far (depsite rapid heart rate), I believe risk at surgery is relatively low IF surgery indicated, I suggest proceeding without further testing. continue amiodarone and metoprolol. discussed with Dr. Somers
[2019-12-03] MEDS: Aspirin EC TAB* 81 MG TAB.EC PO SCH (11:33)
[2019-12-03] MEDS: Amiodarone TAB* 200 MG PO SCH (11:34)
[2019-12-03] MEDS: Nicotine Patch Removal NOTE PATCH OFF SCH (11:36)
--- NOTE | 2019-12-03 11:57 | PN ---
Progress Note - Progress Note Date of Service: 12/03/19 SOAP: Subjective: Reports pain persists in mid abdomen, slightly to right side. No N/V. Has been having diarrhea. He does not feel he is getting better. Objective: Vital Signs Temp 98 F 12/03/19 07:15 Pulse 77 12/03/19 07:15 Resp 18 12/03/19 08:00 BP 106/63 12/03/19 07:15 Pulse Ox 97 12/03/19 07:15 Gen: NAD Abd: obese; soft; tender to percussion in midabdomen=>R side with guarding to palpation; no diffuse peritonitis. Intake & Output 12/02/19 12/03/19 12/03/19 18:59 06:59 18:59 Intake Total 1347.8 1223 Output Total 675 Balance 1347.8 548 Intake: IV Fluids 1000 NS 1000 IVPB 100 Flagyl 100 Heparin 27.8 123 Oral 1320 0 Output: Urine 675 Other: Estimated Void Medium Medium # Bowel Movements 0 1 # Voids [address] 11/30 images reviewed. Assessment: possible "missed" appendicitis w/ abscess (vs diverticulitis with abscess), currently on ceftriaxone and flagyl, with initial improvement, but no option for non surgical drainage of collection and it seems surgical delay puts him at greater risk for cardiac issues. Plan: Exploration via laparoscopy for drainage of abscess, possible appendectomy, possible laparotomy and Stanislaw if findings warrant. The nature of the procedure, indications, risks, benefits, alternatives and option of no treatment were discussed. Expectations regarding postoperative hospitalization and overall recovery were discussed. Risks explained including , not limited to, bleeding, infection, pain, scarring, blood clots, pneumonia, cardiac complications, risk of anesthesia and . All his questions were answered. He states understanding and agrees to proceed.
[2019-12-03] MEDS ORDERED: metroNIDAZOLE IV 500 MG/100ML* 500 MG/100 ML BAG IVPB ONE (12:28)
[2019-12-03] MEDS ORDERED: ceFAZolin 2 GM PREMIX in ORs 2 GM/50 ML BAG ONE (12:28)
[2019-12-03] MEDS ORDERED: Propofol* 10 MG/ML 20 ML BTL ONE (12:31)
[2019-12-03] MEDS ORDERED: Phenylephrine 10 MG/ML VIAL* 1 ML VIAL ONE (12:31)
[2019-12-03] MEDS ORDERED: fentaNYL* 50 MCG/ML 5 ML VIAL (250 MCG VIAL) ONE (12:31)
[2019-12-03] MEDS ORDERED: Ondansetron INJ* 2 MG/ML VIAL ONE (12:31)
[2019-12-03] MEDS ORDERED: KETAMINE HCL* 50 MG/ML 10 ML VIAL ONE (12:31)
[2019-12-03] MEDS ORDERED: Lidocaine 2% PF * 5 ML VIAL ONE (12:31)
[2019-12-03] MEDS ORDERED: Dexamethasone IV* 4 MG/ML 1 ML (4 MG) ONE (12:31)
[2019-12-03] MEDS ORDERED: Rocuronium* 10 MG/ML VIAL ONE (12:31)
[2019-12-03] MEDS ORDERED: Midazolam* 1 MG/ML 5 ML VIAL (5 MG) ONE (12:31)
[2019-12-03] MEDS ORDERED: Bupivacaine 0.25% EPI 200,000* 30 ML SDV ONE (12:56)
[2019-12-03] MEDS ORDERED: Neostigmine Methylsulfate* 1 MG/ML 10 ML VIAL (1 mg/ml) ONE (14:29)
[2019-12-03] MEDS ORDERED: Glycopyrrolate IV* 0.2 MG/ML 1 ML VIAL ONE (14:29)
[2019-12-03] MEDS ORDERED: Naloxone* 0.4 MG/ML 1 ML VIAL IV PRN (15:12)
[2019-12-03] MEDS ORDERED: Ondansetron INJ* 2 MG/ML VIAL IV PRN (15:12)
[2019-12-03] MEDS ORDERED: fentaNYL* 50 MCG/ML 2 ML VIAL (100 MCG VIAL) IV PRN (15:12)
--- NOTE | 2019-12-03 15:13 | OP ---
Operative Report - Blank - Operative Report Date of Operation: 12/03/19 Note: PREOP DX: intraabdominal abscess POSTOP DX: same PROC: laparoscopic drainage of intraabdominal abscess SURG: Mecenas ASSIST: none ANES: GET EBL: <30 mL IVF: 1600mL LR SPEC: abscess fluid for c&s DRAIN: 7mm RAMAN COMPL: none COND: stable; extubated to PACU FINDINGS: intermesenteric abscess adjacent to sigmoid, right of midline; inflammation of mesentery adjacent; small bowel with extensive fibrinous exudate and interloop adhesions especially of the terminal ileum.
--- NOTE | 2019-12-03 16:06 | OP ---
CC: Jose A Alves MD * DATE OF OPERATION: 12/03/19 - ROOM #431 DATE OF : 46 SURGEON: Clarence Mcdonald MD. GREENS LABORER: None. ANESTHESIOLOGIST: Dr. Eren Simon. ANESTHESIA: General endotracheal. PRE-OP DIAGNOSIS: Intraabdominal abscess. POST-OP DIAGNOSIS: Intraabdominal abscess. OPERATIVE PROCEDURE: Laparoscopic drainage of intraabdominal abscess. ESTIMATED BLOOD LOSS: Less than 30 mL. IV FLUIDS: 1600 mL of crystalloid. SPECIMENS: Abscess fluid for culture and sensitivity. DRAINS: 7 mm Austyn-Perez. COMPLICATIONS: None. COUNTS: The instrument, needle, and sponge counts were correct. DESCRIPTION OF PROCEDURE: The patient was brought to the operating room and placed on the table supine. Sequential compression devices were placed on both lower extremities and general anesthesia was administered. He was prepped and draped in the usual sterile fashion and a time-out was performed. He did receive appropriate intravenous antibiotics. Local anesthetic was infiltrated periumbilically, and a transumbilical vertical incision was created using an open technique, peritoneal cavity was accessed. Carbon dioxide was insufflated to a pressure of 15 mmHg. Under direct visualization, a 5 mm trocar was placed in the left lower quadrant. There were noted to be adhesions of the small bowel to the anterior abdominal wall. The bladder was noted to be distended and within the field of view, therefore a Ventura catheter was placed by the leak gang supervisor. After decompressing the bladder, an additional 5 mm trocar was placed in the suprapubic midline once clearing this area of small bowel. There were numerous interloop adhesions of the small bowel that were bluntly. There appeared to be fibrinous exudate covering a portion of the distal small bowel. The separation of the mesenteric folds resulted in identification of an abscess and endoscopic suction was used to aspirate this and cultures were sent. After completely draining the abscess and irrigating it, further attempts to define the cecum and appendix were attempted, but due to the extent of the inflammation within the mesentery and concerns for creating injury, there was no extensive attempt to mobilize the cecum. The sigmoid colon lay in the midline adjacent to the abscess, but the abscess was to the right of the midline. Sigmoid colon did not exhibit any evidence of acute inflammation, however. Small bowel was run from the area of the ileocecal valve proximally. There was again fibrinous exudate. No evidence of any primary source. No evidence of Meckel diverticulum. At this point, a 7 mm Austyn Perez drain was placed into the abdominal cavity and it was cut to size and then positioned into the area of the abscess cavity and withdrawn through the suprapubic port site where it was sutured to the skin with a 3-0 Prolene. Irrigation was performed above the liver where there was some clear straw-colored fluid identified. Subsequently, ports were removed and the umbilical wound was closed with a 0 Vicryl in a [id number] fashion to approximate the fascia as he had an umbilical hernia defect there. The skin was closed with 4-0 Monocryl in subcuticular fashion at the remaining sites and Steri-Strips applied. Dressings were applied around the drain which was placed to suction bulb. The patient was subsequently extubated uneventfully, transferred to Recovery in stable condition. [id number] #: [id number] ALIYAH
[2019-12-03] MEDS: cefTRIAXone(*) 2 GM in NS 0.9% 100 ML* 100 ML IVPB SCH (17:06)
--- NOTE | 2019-12-03 17:36 | PN ---
Subjective Date of Service: 12/03/19 Interval History: Pt is still confused and lethargic from post op sedation Objective Active Medications: Acetaminophen (Tylenol Tab*) 650 mg PO Q4H PRN PRN Reason: MILD PAIN or TEMP > 100.4 Al Hydrox/Mg Hydrox/Simethicone (Maalox Plus*) 30 ml PO Q6H PRN PRN Reason: INDIGESTION Amiodarone HCl (Cordarone Tab*) 200 mg PO DAILY [facility] Last Admin: 12/03/19 11:34 Dose: 200 mg Aspirin (Aspirin Ec Tab*) 81 mg PO DAILY [facility] Last Admin: 12/03/19 11:33 Dose: Not Given Fentanyl Citrate (Fentanyl*) 50 mcg IV Q5M PRN PRN Reason: PAIN - MODERATE Heparin Sodium (Porcine) (Heparin Vial(*)) 0 units IV .FOR HEPARIN BOLUSES [facility] Last Admin: 12/03/19 00:44 Dose: 3,050 units Metronidazole/Sodium Chloride (Flagyl 500 Mg Ivpb*) 500 mg in 100 mls @ 100 mls /hr IVPB 0630,1430,2230 [facility] Last Admin: 12/03/19 17:05 Dose: 100 mls/hr Ceftriaxone Sodium 2 gm/ (Sodium Chloride) 100 mls @ 200 mls/hr IVPB DAILY@ 1400 [facility] Last Admin: 12/03/19 17:06 Dose: 200 mls/hr Sodium Chloride (Ns 0.9% 1000 Ml) 1,000 mls @ 100 mls/hr IV PER RATE [facility] Last Admin: 12/03/19 05:14 Dose: 100 mls/hr Metoprolol Succinate (Toprol Xl Tab*) 25 mg PO BID [facility] Last Admin: 12/03/19 08:22 Dose: Not Given Morphine Sulfate (Morphine Inj (Syringe))*) 2 mg IV Q2H PRN PRN Reason: severe pain breakthrough Last Admin: 12/02/19 22:40 Dose: 2 mg Naloxone HCl (Narcan*) 0.08 mg IV Q2M PRN PRN Reason: severe induced resp depression Nicotine (Nicotine Patch 14 Mg/24 Hr*) 1 patch TRANSDERM DAILY [facility] Last Admin: 12/02/19 09:19 Dose: 1 patch Ondansetron HCl (Zofran Inj*) 4 mg IV Q4H PRN PRN Reason: NAUSEA/VOMITING Ondansetron HCl (Zofran Inj*) 4 mg IV ONCE PRN PRN Reason: NAUSEA/VOMITING Oxycodone HCl (Roxycodone Tab*) 10 mg PO Q4H PRN PRN Reason: PAIN - SEVERE Last Admin: 12/02/19 16:18 Dose: 10 mg Oxycodone/Acetaminophen (Percocet 5/325 Tab*) 1 tab PO Q4H PRN PRN Reason: PAIN - SEVERE Last Admin: 12/02/19 20:44 Dose: 1 tab Pharmacy Profile Note (Nicotine Patch Removal Note*) 1 note PATCH OFF 0900 [facility] Last Admin: 12/03/19 11:36 Dose: 1 note Vital Signs - 8 hr 12/03/19 12/03/19 12/03/19 11:15 14:55 14:56 Temperature 98.2 F 97.3 F Pulse Rate 63 58 58 Respiratory 20 24 Rate Blood Pressure 113/60 111/61 (mmHg) O2 Sat by Pulse 96 97 96 Oximetry 12/03/19 12/03/19 12/03/19 15:00 15:01 15:10 Temperature Pulse Rate 57 57 55 Respiratory 16 16 19 Rate Blood Pressure 111/62 116/63 (mmHg) O2 Sat by Pulse 96 95 97 Oximetry 12/03/19 12/03/19 12/03/19 15:16 15:31 15:46 Temperature Pulse Rate 56 56 56 Respiratory 21 20 16 Rate Blood Pressure 112/66 106/71 116/71 (mmHg) O2 Sat by Pulse 96 96 96 Oximetry 12/03/19 12/03/19 16:00 16:01 Temperature Pulse Rate 58 58 Respiratory 17 20 Rate Blood Pressure 106/65 (mmHg) O2 Sat by Pulse 94 94 Oximetry Oxygen Devices in Use Now: None Appearance: 69 yo M in NAD, AAOx2, mildly confused due to sedation Eyes: No Scleral Icterus, PERRLA Ears/Nose/Mouth/Throat: NL Teeth, Lips, Gums, Mucous Membranes Moist Neck: NL Appearance and Movements; NL JVP, Trachea Midline Respiratory: Symmetrical Chest Expansion and Respiratory Effort, Clear to Auscultation Cardiovascular: NL Sounds; No Murmurs; No JVD, RRR Abdominal: No Hepatosplenomegaly, - - soft, mild tenderness in RLQ, RAMAN drain in place Lymphatic: No Cervical Adenopathy Extremities: No Edema Skin: No Rash or Ulcers, No Nodules or Sclerosis Neurological: Alert and Oriented x 3, NL Muscle Strength and Tone Result Diagrams: 12/03/19 05:10 12/03/19 05:10 Microbiology and Other Data: Microbiology 11/30/19 08:22 Aerobic Blood Culture - Preliminary Blood Venous No Growth Day 1 Anaerobic Blood Culture - Preliminary No Growth Day 1 11/30/19 08:11 Aerobic Blood Culture - Preliminary Blood Venous No Growth Day 1 Anaerobic Blood Culture - Preliminary No Growth Day 1 Assess/Plan/Problems-Billing Assessment: 69 yo M with h/o inguinal hernias, HTN presents with 10 days of lower abd pain with intra-abd abscess, then developed a. fib in the first day of [facility] stay - Patient Problems (1) Abdominal abscess Comment: at approx 4 cmx 6 cm in diam appreciate surgery consult s/p lap drainage of intra-abd abscess today. RAMAN drain in place cont Zosyn (2) Fatty liver Comment: CT ad admission shows fatty infiltration of liver at 8 cm and liver cyst, but f/u CT 12/01 did not show any marked abn (3) Atrial fibrillation Comment: with RVR, onset night of 11/30/19, cardiverted 12/01/[address] Jones ([place]IN[place] , cardioversion) Back in a. fib on 12/02/19, converted to NSR on Cardizem gtt on 12/03/19 AM. Cont Amiodarone, lopressor heparin gtt held for OR, OK to hold for 24H as per DR. Jones (4) EKG abnormality Comment: deep inverted T waves in anterolateral leads on EKG will need stress test once medically appropiate and his abd infection is resolved (5) DVT prophylaxis Comment: heparin gtt held, SCD's Status and Disposition: inpatient
[2019-12-03] MEDS: Nicotine PATCH 14 MG/24 HR* PATCH TRANSDERM SCH (18:17)
[2019-12-03] MEDS: Lactated Ringers 1000 ML Bag* 1,000 ML IV SCH (20:13)
[2019-12-04] MEDS: metroNIDAZOLE IV 500 MG/100ML* 500 MG/100 ML BAG IVPB SCH ×3 (05:31→23:08)
[2019-12-04 06:02] LABS: ABS Lymphocytes 0.5 10^3/ul (1.0-4.8); ABS Monocytes 0.5 10^3/ul (0-0.8); ABS Neutrophils 7.3 10^3/ul (1.5-7.7); Hematocrit 38 % (42-52); Hemoglobin 12.4 g/dL (14.0-18.0); Lymphocyte % 5.5 %; Mean Corpuscular HGB Conc 33 g/dL (31-36); Mean Corpuscular Hemoglobin 31 pg (27-31); Mean Corpuscular Volume 94 fL (80-94); Mean Platelet Volume 10.4 fL (7.4-10.4); Platelet Count 179 10^3/uL (150-450); Red Blood Count 4.02 10^6 /uL (4.18-5.48); Red Cell Distribution Width 13 % (10-15); White Blood Count 8.3 10^3/uL (3.5-10.8)
[2019-12-04 06:17] LABS: BUN/Creatinine Ratio 13.7 (8-20); Calcium 8.1 mg/dL (8.6-10.3); EGFR African American 94.6 (>60); EGFR Non-African American 78.2 (>60); Magnesium 1.8 mg/dL (1.9-2.7); Potassium 4.3 mmol/L (3.5-5.0)
[2019-12-04] MEDS ORDERED: Magnesium Sulfate 1 GM IV* 1 GM/100 ML BAG IV ONE (08:34)
--- NOTE | 2019-12-04 08:52 | PN ---
Subjective Date of Service: 12/04/19 - afib abnl ekg Interval History: Patient seen for afib/rvr/atrial flutter. Patient currently in NSR and was in nsr overnight. He denies cp, dyspnea, or palpitations. Had surgery yesterday for abscess; reports resolution of abdominal pain. no orthopnea. Tolerating po jello this am. Medications Active Medications: Acetaminophen (Tylenol Tab*) 650 mg PO Q4H PRN PRN Reason: MILD PAIN or TEMP > 100.4 Al Hydrox/Mg Hydrox/Simethicone (Maalox Plus*) 30 ml PO Q6H PRN PRN Reason: INDIGESTION Amiodarone HCl (Cordarone Tab*) 200 mg PO DAILY [facility] Last Admin: 12/03/19 11:34 Dose: 200 mg Aspirin (Aspirin Ec Tab*) 81 mg PO DAILY [facility] Last Admin: 12/03/19 11:33 Dose: Not Given Metronidazole/Sodium Chloride (Flagyl 500 Mg Ivpb*) 500 mg in 100 mls @ 100 mls /hr IVPB 0630,1430,2230 [facility] Last Admin: 12/04/19 05:31 Dose: 100 mls/hr Ceftriaxone Sodium 2 gm/ (Sodium Chloride) 100 mls @ 200 mls/hr IVPB DAILY@ 1400 [facility] Last Admin: 12/03/19 17:06 Dose: 200 mls/hr Lactated Ringer's (Lactated Ringers 1000 Ml Bag*) 1,000 mls @ 75 mls/hr IV .PER RATE [facility] Last Admin: 12/03/19 20:13 Dose: 75 mls/hr Magnesium Sulfate/Dextrose (Magnesium Sulfate 1 Gm Iv*) 1 gm in 100 mls @ 200 mls/hr IV ONCE ONE Stop: 12/04/19 09:03 Metoprolol Succinate (Toprol Xl Tab*) 25 mg PO BID [facility] Last Admin: 12/03/19 20:27 Dose: Not Given Morphine Sulfate (Morphine Inj (Syringe))*) 2 mg IV Q2H PRN PRN Reason: severe pain breakthrough Last Admin: 12/02/19 22:40 Dose: 2 mg Nicotine (Nicotine Patch 14 Mg/24 Hr*) 1 patch TRANSDERM DAILY [facility] Last Admin: 12/03/19 18:17 Dose: Not Given Ondansetron HCl (Zofran Inj*) 4 mg IV Q4H PRN PRN Reason: NAUSEA/VOMITING Oxycodone HCl (Roxycodone Tab*) 10 mg PO Q4H PRN PRN Reason: PAIN - SEVERE Last Admin: 12/02/19 16:18 Dose: 10 mg Oxycodone/Acetaminophen (Percocet 5/325 Tab*) 1 tab PO Q4H PRN PRN Reason: PAIN - SEVERE Last Admin: 12/02/19 20:44 Dose: 1 tab Pharmacy Profile Note (Nicotine Patch Removal Note*) 1 note PATCH OFF 0900 [facility] Last Admin: 12/03/19 11:36 Dose: 1 note Objective Vital Signs: Temp Pulse Resp BP Pulse Ox 97.9 F 62 16 122/63 94 12/04/19 07:49 12/04/19 07:49 12/04/19 07:49 12/04/19 07:49 12/04/19 07:49 Oxygen Devices in Use Now: None, Nasal Cannula Appearance: wd wn obese nad Eyes: No Scleral Icterus Neck: - - noJVD Respiratory: Clear to Auscultation Cardiovascular: NL Sounds; No Murmurs; No JVD, RRR Abdominal: No Hepatosplenomegaly, - - + bs Extremities: No Edema Laboratory Results: 12/04/19 05:02 12/04/19 05:02 INR (Anticoag Therapy) 1.68 (0.82-1.09) H 12/01/19 11:10 APTT 59.1 seconds (26.0-38.0) H 12/03/19 06:36 Total Bilirubin 0.50 mg/dL (0.2-1.0) 12/01/19 05:36 AST 11 U/L (13-39) L 12/01/19 05:36 ALT 7 U/L (7-52) 12/01/19 05:36 Alkaline Phosphatase 54 U/L (34-104) 12/01/19 05:36 Total Protein 6.5 g/dL (6.4-8.9) 12/01/19 05:36 Albumin 3.0 g/dL (3.2-5.2) L 12/01/19 05:36 Globulin 3.5 g/dL (2-4) 12/01/19 05:36 Albumin/Globulin Ratio 0.9 (1-3) L 12/01/19 05:36 TSH 2.12 mcIU/mL (0.34-5.60) 12/01/19 05:35 11/30/19 12/01/19 12/01/19 08:21 05:36 08:55 Troponin I 0.01 0.02 0.02 12/01/19 11:10 Troponin I 0.02 EKG Data: nsr with anterior st changes/t wave inversions. similar to 12/03/[address] slight improvement in st/t changes Assessment/Plan Abdominal abscess with newly noted afib/aflutter and anterior t changes now in nsr , persistent pain. AFib/aflutter: Unclear if this episode was provoked by sepsis/pain or if he has silent afib given his lack of sx's. Plan: continue amiodarone 200 mg po qd for 2 weeks outpatient event monitor at some point to evaluate for silent afib metoprolol 25 mg po bid for bp/potential rate control. replace k to over 4 will replace mag which was low again today anticoagulation for 1 month given chads vasc 2 score of 2 restart oral NOAC once ok with surgery given recent surgical intervention. avoid caffeine and alcohol. abnl ekg: anterior t wave changes without prior ekg neg troponins. nl wall motion on echo Plan: beta tyler outpatient stress nuclear at some point discontinue tobacco use. check lipids. ID as per Dr. Somers
[2019-12-04] MEDS: Metoprolol Succinate XL TAB* 25 MG PO SCH ×2 (09:00→19:49)
[2019-12-04] MEDS: Nicotine PATCH 14 MG/24 HR* PATCH TRANSDERM SCH (09:03)
[2019-12-04] MEDS: Amiodarone TAB* 200 MG PO SCH (09:04)
[2019-12-04] MEDS: Aspirin EC TAB* 81 MG TAB.EC PO SCH (09:04)
[2019-12-04] MEDS: Lactated Ringers 1000 ML Bag* 1,000 ML IV SCH (09:15)
[2019-12-04] MEDS ORDERED: Magnesium Sulfate 2 GM IV* 2 GM/50 ML BAG IVPB ONE (09:38)
--- NOTE | 2019-12-04 10:58 | PN ---
Progress Note - Progress Note Date of Service: 12/04/19 SOAP: Subjective: Feels pain has resolved. No N/V/flatus. Objective: Vital Signs Temp 97.9 F 12/04/19 07:49 Pulse 62 12/04/19 07:49 Resp 16 12/04/19 07:49 BP 122/63 12/04/19 07:49 Pulse Ox 94 12/04/19 07:49 Gen: NAD Abd: incisions c/d/i; RAMAN SS; soft; decreased tenderness; no guarding. Intake & Output 12/03/19 12/04/19 12/04/19 18:59 06:59 18:59 Intake Total 1710 1148 360 Output Total 770 2100 75 Balance 940 -952 285 Intake: IV Fluids 1600 739 ABX - CEFTRIAXONE 15 Flagyl 21 LR 1600 Lactated Ringers 703 IVPB 309 ABX - CEFTRIAXONE 100 Flagyl 209 Oral 110 100 360 Output: RAMAN #1 70 200 75 Garcia 700 1900 Other: Estimated Void Medium Micro: no organism on GS; cx pending Assessment: POD#1 s/p lap drainage of intraabd abscess; probably "missed" appendicitis Plan: Cont RAMAN Abx per Hosp/ID D/c garcia Adv diet. Will follow.
[2019-12-04 11:27] LABS: Urine Appearance Clear; Urine Bilirubin Negative (Negative); Urine Blood 1+ (Negative); Urine Color Yellow; Urine Glucose Negative (Negative); Urine Ketones 1+ (Negative); Urine Nitrite Negative (Negative); Urine Protein Negative (Negative); Urine Specific Gravity 1.016 (1.010-1.030); Urine Urobilinogen Negative (Negative)
[2019-12-04 11:30] LABS: Urine Bacteria Absent (Absent); Urine Red Blood Cell 2+(6-10/hpf) (Absent); Urine White Blood Cell Trace(0-5/hpf) (Absent)
--- NOTE | 2019-12-04 11:53 | PN ---
Subjective Date of Service: 12/04/19 Interval History: Pt feels much better, minimal pain in RLQ, wants to go home Objective Active Medications: Acetaminophen (Tylenol Tab*) 650 mg PO Q4H PRN PRN Reason: MILD PAIN or TEMP > 100.4 Al Hydrox/Mg Hydrox/Simethicone (Maalox Plus*) 30 ml PO Q6H PRN PRN Reason: INDIGESTION Amiodarone HCl (Cordarone Tab*) 200 mg PO DAILY [facility] Last Admin: 12/04/19 09:04 Dose: 200 mg Aspirin (Aspirin Ec Tab*) 81 mg PO DAILY [facility] Last Admin: 12/04/19 09:04 Dose: 81 mg Metronidazole/Sodium Chloride (Flagyl 500 Mg Ivpb*) 500 mg in 100 mls @ 100 mls /hr IVPB 0630,1430,2230 [facility] Last Admin: 12/04/19 05:31 Dose: 100 mls/hr Ceftriaxone Sodium 2 gm/ (Sodium Chloride) 100 mls @ 200 mls/hr IVPB DAILY@ 1400 [facility] Last Admin: 12/03/19 17:06 Dose: 200 mls/hr Metoprolol Succinate (Toprol Xl Tab*) 25 mg PO BID [facility] Last Admin: 12/04/19 09:00 Dose: Not Given Morphine Sulfate (Morphine Inj (Syringe))*) 2 mg IV Q2H PRN PRN Reason: severe pain breakthrough Last Admin: 12/02/19 22:40 Dose: 2 mg Nicotine (Nicotine Patch 14 Mg/24 Hr*) 1 patch TRANSDERM DAILY [facility] Last Admin: 12/04/19 09:03 Dose: 1 patch Ondansetron HCl (Zofran Inj*) 4 mg IV Q4H PRN PRN Reason: NAUSEA/VOMITING Oxycodone HCl (Roxycodone Tab*) 10 mg PO Q4H PRN PRN Reason: PAIN - SEVERE Last Admin: 12/02/19 16:18 Dose: 10 mg Oxycodone/Acetaminophen (Percocet 5/325 Tab*) 1 tab PO Q4H PRN PRN Reason: PAIN - SEVERE Last Admin: 12/02/19 20:44 Dose: 1 tab Pharmacy Profile Note (Nicotine Patch Removal Note*) 1 note PATCH OFF 0900 [facility] Last Admin: 12/03/19 11:36 Dose: 1 note Vital Signs - 8 hr 12/04/19 12/04/19 12/04/19 04:32 07:49 11:29 Temperature 97.9 F 97.9 F Pulse Rate 62 68 Respiratory 16 16 Rate Blood Pressure 122/63 137/70 (mmHg) O2 Sat by Pulse 95 94 97 Oximetry Oxygen Devices in Use Now: None, Nasal Cannula Appearance: 69 yo M in nAD, AAOx3 Eyes: No Scleral Icterus, PERRLA Ears/Nose/Mouth/Throat: NL Teeth, Lips, Gums, Mucous Membranes Moist Neck: NL Appearance and Movements; NL JVP, Trachea Midline Respiratory: Symmetrical Chest Expansion and Respiratory Effort, Clear to Auscultation Cardiovascular: NL Sounds; No Murmurs; No JVD, RRR Abdominal: - - soft, tender in RLQ, RAMAN drain present in lower abd draining serosanguineus Lymphatic: No Cervical Adenopathy Extremities: No Edema, No Clubbing, Cyanosis Skin: No Rash or Ulcers, No Nodules or Sclerosis Neurological: Alert and Oriented x 3, NL Muscle Strength and Tone Result Diagrams: 12/04/19 05:02 12/04/19 12:36 Microbiology and Other Data: Microbiology 11/30/19 08:22 Aerobic Blood Culture - Preliminary Blood Venous No Growth Day 1 Anaerobic Blood Culture - Preliminary No Growth Day 1 11/30/19 08:11 Aerobic Blood Culture - Preliminary Blood Venous No Growth Day 1 Anaerobic Blood Culture - Preliminary No Growth Day 1 Assess/Plan/Problems-Billing Assessment: 69 yo M with h/o inguinal hernias, HTN presents with 10 days of lower abd pain with intra-abd abscess, then developed a. fib in the [place] of [facility] [place] - Patient Problems (1) Abdominal abscess Comment: at approx 4 cmx 6 cm in diam appreciate surgery consult s/p lap drainage of intra-abd abscess 12/03/19. RAMAN drain in place cont Zosyn Diet advanced to regular today, d/c IVF (2) Fatty liver Comment: CT ad admission shows fatty infiltration of liver at 8 cm and liver cyst, but f/u CT 12/01 did not show any marked abn (3) Atrial fibrillation Comment: with RVR, onset night of 11/30/19, cardiverted 12/01/[address] Jones ([place]IN[place] , cardioversion) Back in a. fib on 12/02/19, converted to NSR on Cardizem gtt on 12/03/19 AM. Cont Amiodarone, lopressor heparin gtt held for OR, then plan to restart Eliquis tonight and cont eliquis/ metoprolol/amiodarone x 1 month with cardiology and loop recorder f/u (4) EKG abnormality Comment: deep inverted T waves in anterolateral leads on EKG will need stress test once medically appropiate and his abd infection is resolved (5) DVT prophylaxis Comment: HSQ, will start eliquis tonight Status and Disposition: inpatient
[2019-12-04 13:09] LABS: BUN/Creatinine Ratio 14.4 (8-20); Calcium 8.6 mg/dL (8.6-10.3); EGFR African American 92.3 (>60); EGFR Non-African American 76.3 (>60); Potassium 3.9 mmol/L (3.5-5.0)
[2019-12-04] MEDS ORDERED: Heparin VIAL(*) 5000 UNITS/ML VIAL (FIVE THOUSAND) SUBCUT SCH (14:00)
[2019-12-04] MEDS: cefTRIAXone(*) 2 GM in NS 0.9% 100 ML* 100 ML IVPB SCH (14:53)
[2019-12-04] MEDS: Apixaban* 5 MG TAB PO SCH (19:49)
[2019-12-04] MEDS: Nicotine Patch Removal NOTE PATCH OFF SCH (19:53)
[2019-12-05] MEDS: metroNIDAZOLE IV 500 MG/100ML* 500 MG/100 ML BAG IVPB SCH ×3 (05:34→21:40)
[2019-12-05 05:59] LABS: ABS Lymphocytes 1.4 10^3/ul (1.0-4.8); ABS Monocytes 1.1 10^3/ul (0-0.8); ABS Neutrophils 7.2 10^3/ul (1.5-7.7); Eosinophil % 0.2 %; Hematocrit 39 % (42-52); Hemoglobin 12.9 g/dL (14.0-18.0); Lymphocyte % 14.2 %; Mean Corpuscular HGB Conc 34 g/dL (31-36); Mean Corpuscular Hemoglobin 31 pg (27-31); Mean Corpuscular Volume 93 fL (80-94); Mean Platelet Volume 10.1 fL (7.4-10.4); Platelet Count 211 10^3/uL (150-450); Red Blood Count 4.14 10^6 /uL (4.18-5.48); Red Cell Distribution Width 14 % (10-15); White Blood Count 9.7 10^3/uL (3.5-10.8)
[2019-12-05 06:13] LABS: BUN/Creatinine Ratio 16.4 (8-20); Calcium 8.2 mg/dL (8.6-10.3); EGFR African American 79.8 (>60); Potassium 3.6 mmol/L (3.5-5.0)
[2019-12-05] MEDS: Nicotine PATCH 14 MG/24 HR* PATCH TRANSDERM SCH (07:54)
[2019-12-05] MEDS: Amiodarone TAB* 200 MG PO SCH (07:54)
[2019-12-05] MEDS: Metoprolol Succinate XL TAB* 25 MG PO SCH ×2 (07:54→21:38)
[2019-12-05] MEDS: Apixaban* 5 MG TAB PO SCH ×2 (07:54→21:38)
[2019-12-05] MEDS: Aspirin EC TAB* 81 MG TAB.EC PO SCH (07:54)
[2019-12-05] MEDS: Nicotine Patch Removal NOTE PATCH OFF SCH (08:19)
[2019-12-05] MEDS ORDERED: Diltiazem IV push/loading dose 5 MG/ML 5 ML vial (25 mg) IV SLOW PU ONE (08:47)
[2019-12-05] MEDS: Diltiazem IV BAG* D5W Premix 125 MG/125 ML BAG IV SCH ×3 (09:22→21:39)
[2019-12-05] MEDS ORDERED: Potassium Chlor TAB* 10 MEQ TAB.ER PO ONE (09:42)
[2019-12-05] MEDS ORDERED: Amiodarone TAB* 200 MG PO ONE (09:51)
[2019-12-05 10:08] LABS: Magnesium 1.9 mg/dL (1.9-2.7)
[2019-12-05] MEDS ORDERED: Potassium Chlor TAB* 20 MEQ TAB.ER PO ONE (10:13)
--- NOTE | 2019-12-05 10:17 | PN ---
Subjective Date of Service: 12/05/19 - PAF, abdominal abcess Interval History: Patient seen for afib/rvr/atrial flutter. Patient was in NSR on PO amiodarone however, around 0430 patient went back into PAF . He is asymptomatic. States he was sleeping when this occurred. Denies chest pain, sob, rivas, palpitations, sensation of heart racing. Medications Active Medications: Acetaminophen (Tylenol Tab*) 650 mg PO Q4H PRN PRN Reason: MILD PAIN or TEMP > 100.4 Al Hydrox/Mg Hydrox/Simethicone (Maalox Plus*) 30 ml PO Q6H PRN PRN Reason: INDIGESTION Amiodarone HCl (Cordarone Tab*) 400 mg PO BID [facility] Stop: 12/09/19 20:59 Amiodarone HCl (Cordarone Tab*) 200 mg PO BID [facility] Stop: 12/15/19 08:59 Amiodarone HCl (Cordarone Tab*) 200 mg PO DAILY [facility] Apixaban (Eliquis*) 5 mg PO BID [facility] Last Admin: 12/05/19 07:54 Dose: 5 mg Aspirin (Aspirin Ec Tab*) 81 mg PO DAILY [facility] Last Admin: 12/05/19 07:54 Dose: 81 mg Metronidazole/Sodium Chloride (Flagyl 500 Mg Ivpb*) 500 mg in 100 mls @ 100 mls /hr IVPB 0630,1430,2230 [facility] Last Admin: 12/05/19 05:34 Dose: 100 mls/hr Ceftriaxone Sodium 2 gm/ (Sodium Chloride) 100 mls @ 200 mls/hr IVPB DAILY@ 1400 [facility] Last Admin: 12/04/19 14:53 Dose: 200 mls/hr Diltiazem/Dextrose (Cardizem Iv D5w Bag* Premix) 125 mg in 125 mls @ 5 mls/hr IV .PER PROTOCOL [facility]; Protocol Last Admin: 12/05/19 09:22 Dose: 5 mls/hr Metoprolol Succinate (Toprol Xl Tab*) 25 mg PO BID [facility] Last Admin: 12/05/19 07:54 Dose: 25 mg Morphine Sulfate (Morphine Inj (Syringe))*) 2 mg IV Q2H PRN PRN Reason: severe pain breakthrough Last Admin: 12/02/19 22:40 Dose: 2 mg Nicotine (Nicotine Patch 14 Mg/24 Hr*) 1 patch TRANSDERM DAILY [facility] Last Admin: 12/05/19 07:54 Dose: 1 patch Ondansetron HCl (Zofran Inj*) 4 mg IV Q4H PRN PRN Reason: NAUSEA/VOMITING Oxycodone HCl (Roxycodone Tab*) 10 mg PO Q4H PRN PRN Reason: PAIN - SEVERE Last Admin: 12/02/19 16:18 Dose: 10 mg Oxycodone/Acetaminophen (Percocet 5/325 Tab*) 1 tab PO Q4H PRN PRN Reason: PAIN - SEVERE Last Admin: 12/02/19 20:44 Dose: 1 tab Pharmacy Profile Note (Nicotine Patch Removal Note*) 1 note PATCH OFF 0900 [facility] Last Admin: 12/05/19 08:19 Dose: Not Given Objective Vital Signs: Temp Pulse Resp BP Pulse Ox 97.2 F 138 16 125/93 98 12/05/19 07:14 12/05/19 07:14 12/05/19 08:00 12/05/19 08:43 12/05/19 07:14 Oxygen Devices in Use Now: None Appearance: wd wn obese nad Eyes: No Scleral Icterus Neck: - - noJVD Respiratory: Clear to Auscultation Cardiovascular: NL Sounds; No Murmurs; No JVD, RRR - irregular S1, S2, Abdominal: No Hepatosplenomegaly, - - + bs Extremities: No Edema Neurological: Alert and Oriented x 3 Lines/Tubes/Other Access: Clean, Dry and Intact PICC Line Laboratory Results: 12/05/19 05:24 12/05/19 05:25 INR (Anticoag Therapy) 1.68 (0.82-1.09) H 12/01/19 11:10 APTT 59.1 seconds (26.0-38.0) H 12/03/19 06:36 Total Bilirubin 0.50 mg/dL (0.2-1.0) 12/01/19 05:36 AST 11 U/L (13-39) L 12/01/19 05:36 ALT 7 U/L (7-52) 12/01/19 05:36 Alkaline Phosphatase 54 U/L (34-104) 12/01/19 05:36 Total Protein 6.5 g/dL (6.4-8.9) 12/01/19 05:36 Albumin 3.0 g/dL (3.2-5.2) L 12/01/19 05:36 Globulin 3.5 g/dL (2-4) 12/01/19 05:36 Albumin/Globulin Ratio 0.9 (1-3) L 12/01/19 05:36 TSH 2.12 mcIU/mL (0.34-5.60) 12/01/19 05:35 11/30/19 12/01/19 12/01/19 08:21 05:36 08:55 Troponin I 0.01 0.02 0.02 12/01/19 11:10 Troponin I 0.02 Laboratory Results - last 24 hr 12/04/19 12/04/19 12/05/19 10:20 12:36 05:24 WBC 9.7 RBC 4.14 L Hgb 12.9 L Hct 39 L MCV 93 MCH 31 MCHC 34 RDW 14 Plt Count 211 MPV 10.1 Neut % (Auto) 74.5 Lymph % (Auto) 14.2 [place] % (Auto) 10.8 Eos % (Auto) 0.2 Baso % (Auto) 0.3 Absolute Neuts (auto) 7.2 Absolute Lymphs (auto) 1.4 Absolute Monos (auto) 1.1 H Absolute Eos (auto) 0.0 Absolute Basos (auto) 0.0 Absolute Nucleated RBC 0.0 Nucleated RBC % 0.0 Sodium 136 Potassium 3.9 Chloride 106 Carbon Dioxide 21 L Anion Gap 9 BUN 14 Creatinine 0.97 Est GFR ( Amer) 92.3 Est GFR (Non-Af Amer) 76.3 BUN/Creatinine Ratio 14.4 Glucose 138 H Calcium 8.6 Magnesium Urine Color Yellow Urine Appearance Clear Urine pH 6.0 Ur Specific [place] 1.016 Urine Protein Negative Urine Ketones 1+ A Urine Blood 1+ A Urine Nitrate Negative Urine Bilirubin Negative Urine Urobilinogen Negative Ur Leukocyte Esterase Trace A Urine WBC (Auto) Trace(0-5/hpf) Urine RBC (Auto) 2+(6-10/hpf) A Urine Bacteria Absent Hyaline Casts Present A Urine Glucose Negative 12/05/19 05:25 WBC RBC Hgb Hct MCV MCH MCHC RDW Plt Count MPV Neut % (Auto) Lymph % (Auto) [place] % (Auto) Eos % (Auto) Baso % (Auto) Absolute Neuts (auto) Absolute Lymphs (auto) Absolute Monos (auto) Absolute Eos (auto) Absolute Basos (auto) Absolute Nucleated RBC Nucleated RBC % Sodium 137 Potassium 3.6 Chloride 108 Carbon Dioxide 23 Anion Gap 6 BUN 18 Creatinine 1.10 Est GFR ( Amer) 79.8 Est GFR (Non-Af Amer) 66.0 BUN/Creatinine Ratio 16.4 Glucose 104 H Calcium 8.2 L Magnesium 1.9 Urine Color Urine Appearance Urine pH Ur Specific [place] Urine Protein Urine Ketones Urine Blood Urine Nitrate Urine Bilirubin Urine Urobilinogen Ur Leukocyte Esterase Urine WBC (Auto) Urine RBC (Auto) Urine Bacteria Hyaline Casts Urine Glucose Diagnostic Imaging: *[facility]* [place] [address] Fax #: [phone] Transthoracic Echocardiogram Patient: Lowell Pollock : 1950 Study Date: 12/01/2019 Age: 69 Gender: M HR: 124 bpm Height: 70 in /177.8 cm BSA: 2.05 m^2 Weight: 191.6 lb /87.1 kg BMI: 27.5 kg/m^2 *Probation And Patrol Agent: * Radha Crocker *Referring Physician: * Gamal Gatica *Reading Physician: * Cedrick Jones MD Indications: Abnormal EKG. History: Atrial fibrillation. Risk factors: Current tobacco use. Hypertension. Family history is significant for coronary artery disease. Conclusions Summary: - Left ventricle: Systolic function is hyperdynamic. The estimated ejection fraction is 65-70%. - Right ventricle: The cavity size is normal. Wall thickness is mildly increased. - Mitral valve: There is trace regurgitation. - Tricuspid valve: There is trace regurgitation. Study data: Transthoracic echocardiogram. Procedure: Transthoracic echocardiography was performed. Image quality was adequate. Complete 2D, spectral Doppler, and color flow Doppler. Location: Bedside. Patient status: Inpatient. Patient room number: 431-01. No prior study is available for comparison. Rhythm: Atrial fibrillation. This report is only to be considered final once signed by the Provider(s) as displayed in the "<Electronically Signed by >" field (s). Absence of a signature indicates the report is in a draft status and still needs to be finalized. In the event this document was created by someone other than the signing Provider, the individual initiating the document will be listed in the "Entered by:" or "Dictated by:" manzanares. EKG Data: telemetry, Afib rate 100-130 since 0430 Assessment/Plan Abdominal abscess with newly noted afib/aflutter and anterior t changes now in nsr , persistent pain that has since improved. AFib/aflutter: Unclear if this episode was provoked by sepsis/pain or if he has silent afib given his lack of sx's. Plan: increase Amiodarone to 400mg PO BIDx5 days, 200mg Po BID x5 days then 200/day there after. I personally spoke with pharmacy who states he has only received 2300 mg Amiodarone thus far. Keep K+ >4, Mag > 2( ordered K Dur for today already) outpatient event monitor at some point to evaluate for silent afib metoprolol 25 mg po bid for bp/potential rate control. ON IV CCB will add mag level anticoagulation for 1 month given chads vasc 2 score of 2 On Eliquis 5 BID. avoid caffeine and alcohol. Will need eventual sleep study given PAF returned at 0430 while asleep. TFTs are normal abnl ekg: anterior t wave changes without prior ekg neg troponins. nl wall motion on echo Plan: beta tyler outpatient stress nuclear at some point discontinue tobacco use. check lipids. ID as per Dr. Somers Discussed with Dr. Flaherty who agrees with plan of care Attending: Uvaldo Flaherty
--- NOTE | 2019-12-05 11:09 | PN ---
Progress Note - Progress Note Date of Service: 12/05/19 Note: S: Reports his pain has drastically improved. Passing flatus and loose stool. Ambulating without issue. Tolerating diet well with no nausea, emesis, fever, chills, chest pain, palpitations, SOB. O: Temp Pulse Resp BP Pulse Ox 97.2 F 138 16 125/93 98 12/05/19 07:14 12/05/19 07:14 12/05/19 08:00 12/05/19 08:43 12/05/19 07:14 Intake and Output Last 24 Hours 12/03/19 12/04/19 12/05/19 12/06/19 06:59 06:59 06:59 06:59 Intake Total 2570.8 2858 1833 123 Output Total 675 2870 365 30 Balance 1895.8 -12 1468 93 Intake: IV Fluids 1000 2339 203 23 ABX - CEFTRIAXONE 15 20 Flagyl 21 23 LR 1600 Lactated Ringers 703 125 NS 1000 58 IVPB 100 309 310 100 ABX - CEFTRIAXONE 100 205 Flagyl 100 209 105 100 Heparin 150.8 Oral 6443 290 7399 0 Output: RAMAN #1 270 165 30 Urine 675 0 [place] 2600 200 Other: Estimated Void Medium Medium # Bowel Movements 1 # Voids 1 Laboratory Last Values WBC 9.7 10^3/uL (3.5-10.8) 12/05/19 05:24 RBC 4.14 10^6 /uL (4.18-5.48) L 12/05/19 05:24 Hgb 12.9 g/dL (14.0-18.0) L 12/05/19 05:24 Hct 39 % (42-52) L 12/05/19 05:24 MCV 93 fL (80-94) 12/05/19 05:24 MCH 31 pg (27-31) 12/05/19 05:24 MCHC 34 g/dL (31-36) 12/05/19 05:24 RDW 14 % (10-15) 12/05/19 05:24 Plt Count 211 10^3/uL (150-450) 12/05/19 05:24 MPV 10.1 fL (7.4-10.4) 12/05/19 05:24 Neut % (Auto) 74.5 % 12/05/19 05:24 Lymph % (Auto) 14.2 % 12/05/19 05:24 [place] % (Auto) 10.8 % 12/05/19 05:24 Eos % (Auto) 0.2 % 12/05/19 05:24 Baso % (Auto) 0.3 % 12/05/19 05:24 Absolute Neuts (auto) 7.2 10^3/ul (1.5-7.7) 12/05/19 05:24 Absolute Lymphs (auto) 1.4 10^3/ul (1.0-4.8) 12/05/19 05:24 Absolute Monos (auto) 1.1 10^3/ul (0-0.8) H 12/05/19 05:24 Absolute Eos (auto) 0.0 10^3/ul (0-0.6) 12/05/19 05:24 Absolute Basos (auto) 0.0 10^3/ul (0-0.2) 12/05/19 05:24 Absolute Nucleated RBC 0.0 10^3/ul 12/05/19 05:24 Nucleated RBC % 0.0 12/05/19 05:24 INR (Anticoag Therapy) 1.68 (0.82-1.09) H 12/01/19 11:10 APTT 59.1 seconds (26.0-38.0) H 12/03/19 06:36 Sodium 137 mmol/L (135-145) 12/05/19 05:25 Potassium 3.6 mmol/L (3.5-5.0) 12/05/19 05:25 Chloride 108 mmol/L (101-111) 12/05/19 05:25 Carbon Dioxide 23 mmol/L (22-32) 12/05/19 05:25 Anion Gap 6 mmol/L (2-11) 12/05/19 05:25 BUN 18 mg/dL (6-24) 12/05/19 05:25 Creatinine 1.10 mg/dL (0.67-1.17) 12/05/19 05:25 Est GFR ( Amer) 79.8 (>60) 12/05/19 05:25 Est GFR (Non-Af Amer) 66.0 (>60) 12/05/19 05:25 BUN/Creatinine Ratio 16.4 (8-20) 12/05/19 05:25 Glucose 104 mg/dL (70-100) H 12/05/19 05:25 Lactic Acid 0.7 mmol/L (0.5-2.0) 11/30/19 08:21 Calcium 8.2 mg/dL (8.6-10.3) L 12/05/19 05:25 Magnesium 1.9 mg/dL (1.9-2.7) 12/05/19 05:25 Total Bilirubin 0.50 mg/dL (0.2-1.0) 12/01/19 05:36 AST 11 U/L (13-39) L 12/01/19 05:36 ALT 7 U/L (7-52) 12/01/19 05:36 Alkaline Phosphatase 54 U/L (34-104) 12/01/19 05:36 Troponin I 0.02 ng/mL (<0.03) 12/01/19 11:10 C-Reactive Protein 293.28 mg/L (<8.01) H 12/02/19 03:07 Total Protein 6.5 g/dL (6.4-8.9) 12/01/19 05:36 Albumin 3.0 g/dL (3.2-5.2) L 12/01/19 05:36 Globulin 3.5 g/dL (2-4) 12/01/19 05:36 Albumin/Globulin Ratio 0.9 (1-3) L 12/01/19 05:36 TSH 2.12 mcIU/mL (0.34-5.60) 12/01/19 05:35 Free T4 1.05 ng/dL (0.61-1.12) 12/01/19 05:35 Urine Color Yellow 12/04/19 10:20 Urine Appearance Clear 12/04/19 10:20 Urine pH 6.0 (5-9) 12/04/19 10:20 Ur Specific [place] 1.016 (1.010-1.030) 12/04/19 10:20 Urine Protein Negative (Negative) 12/04/19 10:20 Urine Ketones 1+ (Negative) A 12/04/19 10:20 Urine Blood 1+ (Negative) A 12/04/19 10:20 Urine Nitrate Negative (Negative) 12/04/19 10:20 Urine Bilirubin Negative (Negative) 12/04/19 10:20 Urine Urobilinogen Negative (Negative) 12/04/19 10:20 Ur Leukocyte Esterase Trace (Negative) A 12/04/19 10:20 Urine WBC (Auto) Trace(0-5/hpf) (Absent) 12/04/19 10:20 Urine RBC (Auto) 2+(6-10/hpf) (Absent) A 12/04/19 10:20 Urine Bacteria Absent (Absent) 12/04/19 10:20 Hyaline Casts Present (Absent) A 12/04/19 10:20 Urine Glucose Negative (Negative) 12/04/19 10:20 Microbiology 12/03/19 15:00 Anaerobic Culture - Preliminary Wound - Abdominal Gram Stain - Final Wound Culture - Preliminary Escherichia Coli 12/04/19 10:20 Urine Culture - Final Urine No Growth (<1,000 CFU/mL) 11/30/19 08:22 Aerobic Blood Culture - Final Blood Venous No Growth Day 5 Anaerobic Blood Culture - Final No Growth Day 5 11/30/19 08:11 Aerobic Blood Culture - Final Blood Venous No Growth Day 5 Anaerobic Blood Culture - Final No Growth Day 5 12/01/19 19:24 Stool Gross Appearance - Final Stool C. difficile DNA Amplification - Final 027 Presumptive NEGATIVE Toxigenic C.diff NEGATIVE PEX General: Alert, in NAD. Integumentary: No rashes, jaundice, petechia. HEENT: Oropharynx clear. Trachea midline. PERRLA. Heart: Irregularly irregular. No murmurs, rubs, or gallups. Lungs: CTAB. No WRR. ABD: Mild tenderness over incisions, which are C/D/I. Otherwise, nontender. Slightly tympanic. BS present. RAMAN with serosanguineous output. Extremities: Calves soft and nontender. No edema. Distal pulses intact bilaterally. Assessment and plan: 69 yo M s/p laparoscopic drainage of abscess and drain placement POD 2. Recovering appropriately, continue antibiotics per ID/hosp, ambulating, IS, SCDs, RAMAN.
--- NOTE | 2019-12-05 11:49 | PN ---
Progress Note - Progress Note Date of Service: 12/05/19 SOAP: Subjective: CC: Abdominal abscess HPI: Mr. Pollock is a 69 yo male with PMH significant for peripheral arterial occlusive disease, HTN, tobacco dependence, obesity, right inguinal hernia; who presented to the hospital with ABD pain and was found to have an ABD abscess. Denies fever, chills, nausea, vomiting, or diarrhea. He states that the ABD pain he was having has resolved since surgery. He is passing flatus and reports an ok appetite. He continues to have a RAMAN drain in place. He is concerned about swelling in his hands and is anxious for discharge to home. Objective: Vital Signs - 8 hr 12/05/19 12/05/19 12/05/19 04:32 07:14 08:00 Temperature 97.2 F Pulse Rate 123 138 Respiratory 16 16 16 Rate Blood Pressure 157/91 142/85 (mmHg) O2 Sat by Pulse 95 98 Oximetry Physical Exam: General: NAD, sitting up in bed Neurological: Alert and oriented HEENT: Moist MM Cardiovascular: Heart rate irregular and tachycardia Respiratory: Lungs clear bilateral Abdominal: Bowel sounds present; ABD soft, non tender and large Skin: No rash. RAMAN drain to the right lower ABD with serosang drainage Laboratory Results - last 24 hr 12/04/19 12/05/19 12/05/19 12:36 05:24 05:25 WBC 9.7 RBC 4.14 L Hgb 12.9 L Hct 39 L MCV 93 MCH 31 MCHC 34 RDW 14 Plt Count 211 MPV 10.1 Neut % (Auto) 74.5 Lymph % (Auto) 14.2 [place] % (Auto) 10.8 Eos % (Auto) 0.2 Baso % (Auto) 0.3 Absolute Neuts (auto) 7.2 Absolute Lymphs (auto) 1.4 Absolute Monos (auto) 1.1 H Absolute Eos (auto) 0.0 Absolute Basos (auto) 0.0 Absolute Nucleated RBC 0.0 Nucleated RBC % 0.0 Sodium 136 137 Potassium 3.9 3.6 Chloride 106 108 Carbon Dioxide 21 L 23 Anion Gap 9 6 BUN 14 18 Creatinine 0.97 1.10 Est GFR ( Amer) 92.3 79.8 Est GFR (Non-Af Amer) 76.3 66.0 BUN/Creatinine Ratio 14.4 16.4 Glucose 138 H 104 H Calcium 8.6 8.2 L Magnesium 1.9 Microbiology 12/03/19 15:00 Anaerobic Culture - Preliminary Wound - Abdominal Gram Stain - Final Wound Culture - Preliminary Escherichia Coli 12/04/19 10:20 Urine Culture - Final Urine No Growth (<1,000 CFU/mL) 11/30/19 08:22 Aerobic Blood Culture - Final Blood Venous No Growth Day 5 Anaerobic Blood Culture - Final No Growth Day 5 11/30/19 08:11 Aerobic Blood Culture - Final Blood Venous No Growth Day 5 Anaerobic Blood Culture - Final No Growth Day 5 12/01/19 19:24 Stool Gross Appearance - Final Stool C. difficile DNA Amplification - Final 027 Presumptive NEGATIVE Toxigenic C.diff NEGATIVE Assessment: 1. Abdominal abscess. CT scan from 12/02/19 with "abscess in the right retroperitoneum is unchanged from prior exam. Findings consistent with a periappendiceal abscess with abnormal appendix adjacent to the fluid collection ". S/P laparoscopic drainage of intraabdominal abscess on 12/03/19. 2. Paroxysmal A fib. Pt with RVR this AM. Denies feeling tachycardia or shortness of breath. 3. Peripheral arterial disease. 4. Obesity. BMI 27.5. Plan: Continue Ceftriaxone 2 gm IV daily and Flagyl 500 mg (can be transitioned to oral when ok with general surgery), day 3 (since surgical drainage). PICC line was placed this morning. Discharge plan: Will plan on a 2 week course of Ceftriaxone 2gm IV daily and Flagyl 500 mg PO BID. Weekly labs while on IV ABX: CBC, CMP, and CRP. Followup outpatient with ID 1-2 week. 25 minutes floor time: > 50% spent with patient discussing plans for outpatient IV ABX and followup.
--- NOTE | 2019-12-05 12:32 | PN ---
Progress Note - Progress Note Date of Service: 12/05/19 Note: Surgery Progress Note I saw and examined this patient, and have reviewed his clinical information and labs. Briefly, he is a 69 yo M who presented with an intraabdominal abscess of unclear etiology, although it was suspected he likely had a missed ruptured appendicitis. He is POD 2 from laparoscopic washout and feels immensely better. He is tolerating a regular diet, he has been afebrile and WBC is normal with no left shift. He is having flatus and diarrhea. On exam he is minimally tender. Incisions c/d/i, and RAMAN with serosanguinous fluid. He remains hospitalized for persistent afib with RVR. He has been evaluated by cardiology and is on amiodarone, diltiazem and MTP and started Eliquis yesterday. He has also been followed by ID who has recommended IV abx as an outpatient. He received a PICC today. His intraop cx have thus far resulted pansensitive e coli. He can be discharged from a surgical perspective once his acute medical problems have stabilized. I advised him he may continue to have diarrhea for some given, given the inflammation from his abscess. He wishes to follow up at [facility] (Dr. Lozada is there twice a week) for his post operative appointment and RAMAN drain removal. This can be arranged before discharge.
--- NOTE | 2019-12-05 13:01 | PN ---
Subjective Date of Service: 12/05/19 Interval History: HOSPITALIST PROGRESS NOTE Patient seen and examined at bedside. Care reviewed and d/w Arianna Rivero RN. He offers no new complaints today. Abdominal pain is less intense. Family History: Unchanged from Admission Social History: Unchanged from Admission Past Medical History: Unchanged from Admission Objective Active Medications: Acetaminophen (Tylenol Tab*) 650 mg PO Q4H PRN PRN Reason: MILD PAIN or TEMP > 100.4 Al Hydrox/Mg Hydrox/Simethicone (Maalox Plus*) 30 ml PO Q6H PRN PRN Reason: INDIGESTION Amiodarone HCl (Cordarone Tab*) 400 mg PO BID [facility] Stop: 12/09/19 20:59 Amiodarone HCl (Cordarone Tab*) 200 mg PO BID [facility] Stop: 12/15/19 08:59 Amiodarone HCl (Cordarone Tab*) 200 mg PO DAILY [facility] Apixaban (Eliquis*) 5 mg PO BID [facility] Last Admin: 12/05/19 07:54 Dose: 5 mg Aspirin (Aspirin Ec Tab*) 81 mg PO DAILY [facility] Last Admin: 12/05/19 07:54 Dose: 81 mg Heparin Sodium (Porcine) (Heparin Flush Picc/Ml/Cvc(*)) 0 ml FLUSH 0600,1800 [facility] Metronidazole/Sodium Chloride (Flagyl 500 Mg Ivpb*) 500 mg in 100 mls @ 100 mls /hr IVPB 0630,1430,2230 [facility] Last Admin: 12/05/19 05:34 Dose: 100 mls/hr Ceftriaxone Sodium 2 gm/ (Sodium Chloride) 100 mls @ 200 mls/hr IVPB DAILY@ 1400 [facility] Last Admin: 12/04/19 14:53 Dose: 200 mls/hr Diltiazem/Dextrose (Cardizem Iv D5w Bag* Premix) 125 mg in 125 mls @ 5 mls/hr IV .PER PROTOCOL [facility]; Protocol Last Admin: 12/05/19 09:22 Dose: 5 mls/hr Metoprolol Succinate (Toprol Xl Tab*) 25 mg PO BID [facility] Last Admin: 12/05/19 07:54 Dose: 25 mg Morphine Sulfate (Morphine Inj (Syringe))*) 2 mg IV Q2H PRN PRN Reason: severe pain breakthrough Last Admin: 12/02/19 22:40 Dose: 2 mg Nicotine (Nicotine Patch 14 Mg/24 Hr*) 1 patch TRANSDERM DAILY [facility] Last Admin: 12/05/19 07:54 Dose: 1 patch Ondansetron HCl (Zofran Inj*) 4 mg IV Q4H PRN PRN Reason: NAUSEA/VOMITING Oxycodone HCl (Roxycodone Tab*) 10 mg PO Q4H PRN PRN Reason: PAIN - SEVERE Last Admin: 12/02/19 16:18 Dose: 10 mg Oxycodone/Acetaminophen (Percocet 5/325 Tab*) 1 tab PO Q4H PRN PRN Reason: PAIN - SEVERE Last Admin: 12/02/19 20:44 Dose: 1 tab Pharmacy Profile Note (Nicotine Patch Removal Note*) 1 note PATCH OFF 0900 [facility] Last Admin: 12/05/19 08:19 Dose: Not Given Vital Signs - 8 hr 12/05/19 12/05/19 12/05/19 07:14 08:00 08:43 Temperature 97.2 F Pulse Rate 138 Respiratory 16 16 Rate Blood Pressure 142/85 125/93 (mmHg) O2 Sat by Pulse 98 Oximetry Oxygen Devices in Use Now: None Appearance: Elderly gentleman lying in bed in NAD Eyes: No Scleral Icterus Ears/Nose/Mouth/Throat: Mucous Membranes Moist Neck: Trachea Midline Respiratory: Symmetrical Chest Expansion and Respiratory Effort, Clear to Auscultation Cardiovascular: - - Normal S1 and S2, irregularly irregular Abdominal: - - Soft, mild incisional tenderness, NG, NR, BS+ Neurological: Alert and Oriented x 3, NL Muscle Strength and Tone Result Diagrams: 12/05/19 05:24 12/05/19 05:25 Assess/Plan/Problems-Billing Assessment: Mr Pollock is a 69 yo M with PMH of inguinal hernias, HTN who presented with 10 days of lower abdominal pain found to have intra-abdominal abscess. Hospital course complicated by Afib RVR. - Patient Problems (1) Abdominal abscess Comment: - s/p laparoscopic drainage of intra-abdominal abscess 12/03/19. RAMAN drain in place - Fluid culture growing pansensitive E. coli - Continue Ceftriaxone and Metronidazole - PICC placed today - plan to complete 2 weeks of treatment. (2) Atrial fibrillation Comment: - with RVR, onset night of 11/30/19, cardiverted 12/01/[address] Jones ( [place], cardioversion). Back in Afib on 12/02/19, converted to NSR on Cardizem gtt on 12/03/19 AM. - In rapid Afib with HR 160 this AM - resumed Cardizem drip for rate control and continue Amiodarone load as per Cardiology recommendations - Continue Apixaban. (3) EKG abnormality Comment: - deep inverted T waves in anterolateral leads on EKG - will need stress test as outpatient once medically stable and abdominal infection is resolved (4) DVT prophylaxis Comment: - Apixaban (5) Full code status Status and Disposition: Inpatient
[2019-12-05] MEDS: cefTRIAXone(*) 2 GM in NS 0.9% 100 ML* 100 ML IVPB SCH (14:23)
[2019-12-05] MEDS: Amiodarone TAB* 400 MG PO SCH (21:38)
[2019-12-06] MEDS: metroNIDAZOLE IV 500 MG/100ML* 500 MG/100 ML BAG IVPB SCH ×2 (06:41→13:59)
--- NOTE | 2019-12-06 08:39 | PN ---
Subjective Date of Service: 12/06/19 - Afib/aflutter. Intraabdominal abcesss Interval History: Patient seen for afib/rvr/atrial flutter. Patient was in NSR on PO amiodarone however, around 0430 yesterday 12/05/19 went back into PAF/AFL with RVR. He continues to be asymptomatic. Offers no complaints. He is anxious to go home. Medications Active Medications: Acetaminophen (Tylenol Tab*) 650 mg PO Q4H PRN PRN Reason: MILD PAIN or TEMP > 100.4 Al Hydrox/Mg Hydrox/Simethicone (Maalox Plus*) 30 ml PO Q6H PRN PRN Reason: INDIGESTION Amiodarone HCl (Cordarone Tab*) 400 mg PO BID [facility] Stop: 12/09/19 20:59 Last Admin: 12/05/19 21:38 Dose: 400 mg Amiodarone HCl (Cordarone Tab*) 200 mg PO BID [facility] Stop: 12/15/19 08:59 Amiodarone HCl (Cordarone Tab*) 200 mg PO DAILY [facility] Apixaban (Eliquis*) 5 mg PO BID [facility] Last Admin: 12/05/19 21:38 Dose: 5 mg Aspirin (Aspirin Ec Tab*) 81 mg PO DAILY [facility] Last Admin: 12/05/19 07:54 Dose: 81 mg Heparin Sodium (Porcine) (Heparin Flush Picc/Ml/Cvc(*)) 0 ml FLUSH 0600,1800 [facility] Last Admin: 12/05/19 17:32 Dose: 1 ml Metronidazole/Sodium Chloride (Flagyl 500 Mg Ivpb*) 500 mg in 100 mls @ 100 mls /hr IVPB 0630,1430,2230 [facility] Last Admin: 12/06/19 06:41 Dose: 100 mls/hr Ceftriaxone Sodium 2 gm/ (Sodium Chloride) 100 mls @ 200 mls/hr IVPB DAILY@ 1400 [facility] Last Admin: 12/05/19 14:23 Dose: 200 mls/hr Diltiazem/Dextrose (Cardizem Iv D5w Bag* Premix) 125 mg in 125 mls @ 10 mls/hr IV .PER PROTOCOL [facility]; Protocol Last Admin: 12/05/19 21:39 Dose: 10 mls/hr Metoprolol Succinate (Toprol Xl Tab*) 37.5 mg PO BID [facility] Morphine Sulfate (Morphine Inj (Syringe))*) 2 mg IV Q2H PRN PRN Reason: severe pain breakthrough Last Admin: 12/02/19 22:40 Dose: 2 mg Nicotine (Nicotine Patch 14 Mg/24 Hr*) 1 patch TRANSDERM DAILY [facility] Last Admin: 12/05/19 07:54 Dose: 1 patch Ondansetron HCl (Zofran Inj*) 4 mg IV Q4H PRN PRN Reason: NAUSEA/VOMITING Oxycodone HCl (Roxycodone Tab*) 10 mg PO Q4H PRN PRN Reason: PAIN - SEVERE Last Admin: 12/02/19 16:18 Dose: 10 mg Oxycodone/Acetaminophen (Percocet 5/325 Tab*) 1 tab PO Q4H PRN PRN Reason: PAIN - SEVERE Last Admin: 12/02/19 20:44 Dose: 1 tab Pharmacy Profile Note (Nicotine Patch Removal Note*) 1 note PATCH OFF 0900 [facility] Last Admin: 12/05/19 08:19 Dose: Not Given Objective Vital Signs: Temp Pulse Resp BP Pulse Ox 98.6 F 99 18 143/82 96 12/06/19 03:03 12/06/19 03:03 12/06/19 03:03 12/06/19 02:16 12/06/19 03:03 Oxygen Devices in Use Now: None Appearance: wd wn obese nad Eyes: No Scleral Icterus Neck: - - noJVD Respiratory: Clear to Auscultation Cardiovascular: NL Sounds; No Murmurs; No JVD, RRR - irregular S1, S2, Abdominal: No Hepatosplenomegaly, - - + bs Extremities: No Edema Neurological: Alert and Oriented x 3 Lines/Tubes/Other Access: Clean, Dry and Intact PICC Line Laboratory Results: 12/05/19 05:24 12/05/19 05:25 INR (Anticoag Therapy) 1.68 (0.82-1.09) H 12/01/19 11:10 APTT 59.1 seconds (26.0-38.0) H 12/03/19 06:36 Total Bilirubin 0.50 mg/dL (0.2-1.0) 12/01/19 05:36 AST 11 U/L (13-39) L 12/01/19 05:36 ALT 7 U/L (7-52) 12/01/19 05:36 Alkaline Phosphatase 54 U/L (34-104) 12/01/19 05:36 Total Protein 6.5 g/dL (6.4-8.9) 12/01/19 05:36 Albumin 3.0 g/dL (3.2-5.2) L 12/01/19 05:36 Globulin 3.5 g/dL (2-4) 12/01/19 05:36 Albumin/Globulin Ratio 0.9 (1-3) L 12/01/19 05:36 TSH 2.12 mcIU/mL (0.34-5.60) 12/01/19 05:35 11/30/19 12/01/19 12/01/19 08:21 05:36 08:55 Troponin I 0.01 0.02 0.02 12/01/19 11:10 Troponin I 0.02 Diagnostic Imaging: *[facility]* [place] [address] Fax #: [phone] Transthoracic Echocardiogram Patient: Lowell Pollock : 1950 Study Date: 12/01/2019 Age: 69 Gender: M HR: 124 bpm Height: 70 in /177.8 cm BSA: 2.05 m^2 Weight: 191.6 lb /87.1 kg BMI: 27.5 kg/m^2 *Telegraph Messenger: * Radha Crocker *Referring Physician: * Gamal GaticaReading Physician: * Cedrick Jones MD Indications: Abnormal EKG. History: Atrial fibrillation. Risk factors: Current tobacco use. Hypertension. Family history is significant for coronary artery disease. Conclusions Summary: - Left ventricle: Systolic function is hyperdynamic. The estimated ejection fraction is 65-70%. - Right ventricle: The cavity size is normal. Wall thickness is mildly increased. - Mitral valve: There is trace regurgitation. - Tricuspid valve: There is trace regurgitation. Study data: Transthoracic echocardiogram. Procedure: Transthoracic echocardiography was performed. Image quality was adequate. Complete 2D, spectral Doppler, and color flow Doppler. Location: Bedside. Patient status: Inpatient. Patient room number: 431-01. No prior study is available for comparison. Rhythm: Atrial fibrillation. This report is only to be considered final once signed by the Provider(s) as displayed in the "<Electronically Signed by >" field (s). Absence of a signature indicates the report is in a draft status and still needs to be finalized. In the event this document was created by someone other than the signing Provider, the individual initiating the document will be listed in the "Entered by:" or "Dictated by:" manzanares. EKG Data: telemetry, Afib rate 100-130 since 043 Assessment/Plan Abdominal abscess with newly noted afib/aflutter and anterior t changes s/p failed external CV and chemical CV, persistent pain that has since improved. AFib/aflutter: Unclear if this episode was provoked by sepsis/pain or if he has silent afib given his lack of sx's. Plan: Continue Amiodarone to 400mg PO BIDx5 days, 200mg Po BID x5 days then 200/day there after. Keep K+ >4, Mag > 2 Rates still poorly controlled on Toprol 25 BID and IV Cardizem. Will increase Toprol to 37.5 BID. Uptitrate if needed and if BP allows. ( has relative bradycardia when in NSR) On Eliquis 5 BID. avoid caffeine and alcohol. Will need eventual sleep study given PAF returned at 0430 while asleep. TFTs are normal abnl ekg: anterior t wave changes without prior ekg neg troponins. nl wall motion on echo Plan: beta tyler outpatient stress nuclear at some point discontinue tobacco use. check lipids. ID as per Dr. Somers Discussed with Dr. Flaherty who agrees with plan of care Attending: Uvaldo Flaherty
[2019-12-06 09:01] LABS: EGFR African American 96.9 (>60); EGFR Non-African American 80.1 (>60); Potassium 3.6 mmol/L (3.5-5.0)
--- NOTE | 2019-12-06 09:32 | PN ---
Progress Note - Progress Note Date of Service: 12/06/19 SOAP: Subjective: CC: Abdominal abscess HPI: Mr. Pollock is a 69 yo male with PMH significant for peripheral arterial occlusive disease, HTN, tobacco dependence, obesity, and right inguinal hernia; who presented to the hospital with ABD pain and was found to have an ABD abscess. Denies fever, chills, abdominal pain, nausea, or vomiting. He is passing flatus and reports an ok appetite. He continues to have a RAMAN drain in place, draining serosang drainage. He reports multiple small loose stools daily , with ABD cramping prior to the need to move his bowels. Objective: Vital Signs - 8 hr 12/06/19 12/06/19 02:16 03:03 Temperature 98.6 F Pulse Rate 99 Respiratory 18 Rate Blood Pressure 143/82 (mmHg) O2 Sat by Pulse 96 Oximetry Physical Exam: General: NAD, sitting up in bed Neurological: Alert and oriented HEENT: Moist MM Cardiovascular: Heart rate irregular and tachycardia Respiratory: Lungs clear bilateral Abdominal: Bowel sounds present; ABD soft, non tender and large Skin: No rash. RAMAN drain to the right lower ABD with serosang drainage Laboratory Results - last 24 hr 12/05/19 12/06/19 05:25 08:10 Sodium 137 136 Potassium 3.6 3.6 Chloride 108 105 Carbon Dioxide 23 24 Anion Gap 6 7 BUN 18 13 Creatinine 1.10 0.93 Est GFR ( Amer) 79.8 96.9 Est GFR (Non-Af Amer) 66.0 80.1 BUN/Creatinine Ratio 16.4 14.0 Glucose 104 H 113 H Calcium 8.2 L 8.0 L Magnesium 1.9 Microbiology 12/03/19 15:00 Anaerobic Culture - Preliminary Wound - Abdominal Gram Stain - Final Wound Culture - Preliminary Escherichia Coli 12/04/19 10:20 Urine Culture - Final Urine No Growth (<1,000 CFU/mL) 11/30/19 08:22 Aerobic Blood Culture - Final Blood Venous No Growth Day 5 Anaerobic Blood Culture - Final No Growth Day 5 11/30/19 08:11 Aerobic Blood Culture - Final Blood Venous No Growth Day 5 Anaerobic Blood Culture - Final No Growth Day 5 12/01/19 19:24 Stool Gross Appearance - Final Stool C. difficile DNA Amplification - Final 027 Presumptive NEGATIVE Toxigenic C.diff NEGATIVE Assessment: 1. Abdominal abscess. CT scan from 12/02/19 with "abscess in the right retroperitoneum is unchanged from prior exam. Findings consistent with a periappendiceal abscess with abnormal appendix adjacent to the fluid collection ". S/P laparoscopic drainage of intraabdominal abscess on 12/03/19. Afebrile and no leukocytosis. 2. Diarrhea. Reports multiple small loose stools daily, not on laxatives or stool softeners. Stool for C-diff negative on 12/01/19. 3. Paroxysmal A fib. 4. Peripheral arterial disease. Plan: Continue Ceftriaxone 2 gm IV daily and Flagyl 500 mg (will decrease to BID and transition to oral Flagyl), day 4 (since surgical drainage). PICC line has been placed. Discharge plan: Will plan on a 2 week course of Ceftriaxone 2gm IV daily and Flagyl 500 mg PO BID. Weekly labs while on IV ABX: CBC, CMP, and CRP. Followup outpatient with ID 1-2 week.
[2019-12-06] MEDS: Apixaban* 5 MG TAB PO SCH ×2 (09:39→21:24)
[2019-12-06] MEDS: Amiodarone TAB* 400 MG PO SCH ×2 (09:39→21:24)
[2019-12-06] MEDS: Aspirin EC TAB* 81 MG TAB.EC PO SCH (09:39)
[2019-12-06] MEDS: Metoprolol Succinate XL TAB* 25 MG PO SCH ×2 (09:40→21:25)
[2019-12-06] MEDS: Nicotine PATCH 14 MG/24 HR* PATCH TRANSDERM SCH (09:46)
[2019-12-06] MEDS: Nicotine Patch Removal NOTE PATCH OFF SCH (09:47)
--- NOTE | 2019-12-06 10:24 | PN ---
Progress Note - Progress Note Date of Service: 12/06/19 Note: S: Reports he is feeling very well. Tolerating regular diet. No abdominal pain, nausea, emesis, fever, chills, chest pain, palpitations, SOB. Ambulating without issue. Continues with diarrhea and passing flatus. O: Temp Pulse Resp BP Pulse Ox 97.4 F 99 18 125/86 96 12/06/19 07:15 12/06/19 03:03 12/06/19 03:03 12/06/19 08:16 12/06/19 07:15 Intake and Output Last 24 Hours 12/04/19 12/05/19 12/06/19 12/07/19 06:59 06:59 06:59 06:59 Intake Total 2858 1833 818 Output Total 2870 365 48 Balance -12 1468 770 Intake: IV Fluids 2339 203 63 ABX - CEFTRIAXONE 15 20 20 Flagyl 21 43 LR 1600 Lactated Ringers 703 125 NS 58 IVPB 309 310 415 ABX - CEFTRIAXONE 100 205 105 Flagyl 209 105 310 Oral 210 1320 340 Output: RAMAN #1 270 165 48 Urine 0 0 [place] 2600 200 Other: Estimated Void Medium Medium PEX General: Alert, in NAD. HEENT: PERRLA. Oropharynx clear. Heart: Irregularly irregular. No murmurs, rubs, or gallups. Lungs: CTAB, no WRR. ABD: BS present. Soft, nondistended. Mild tenderness over incisions, which are C /D/I. No guarding or rebound tenderness. RAMAN with SS output. Extremities: Calves soft and nontender. Distal pulses intact bilaterally. No edema. Assessment and plan: 69 yo M s/p laparoscopic drainage of abscess and drain placement POD 3. Infection improving, continue ambulating, IS, SCDs, RAMAN. ABX per ID.
--- NOTE | 2019-12-06 13:48 | PN ---
Subjective Date of Service: 12/06/19 Interval History: HOSPITALIST PROGRESS NOTE Patient seen and examined at bedside. Care reviewed and d/w Avery Smith RN. He feels well today. Abdominal pain is much improved, denies N/V, tolerating diet well. No CP or palpitations even when he's in rapid Afib. Family History: Unchanged from Admission Social History: Unchanged from Admission Past Medical History: Unchanged from Admission Objective Active Medications: Acetaminophen (Tylenol Tab*) 650 mg PO Q4H PRN PRN Reason: MILD PAIN or TEMP > 100.4 Al Hydrox/Mg Hydrox/Simethicone (Maalox Plus*) 30 ml PO Q6H PRN PRN Reason: INDIGESTION Amiodarone HCl (Cordarone Tab*) 400 mg PO BID [facility] Stop: 12/09/19 20:59 Last Admin: 12/06/19 09:39 Dose: 400 mg Amiodarone HCl (Cordarone Tab*) 200 mg PO BID [facility] Stop: 12/15/19 08:59 Amiodarone HCl (Cordarone Tab*) 200 mg PO DAILY [facility] Apixaban (Eliquis*) 5 mg PO BID [facility] Last Admin: 12/06/19 09:39 Dose: 5 mg Aspirin (Aspirin Ec Tab*) 81 mg PO DAILY [facility] Last Admin: 12/06/19 09:39 Dose: 81 mg Heparin Sodium (Porcine) (Heparin Flush Picc/Ml/Cvc(*)) 0 ml FLUSH 0600,1800 [facility] Last Admin: 12/06/19 09:41 Dose: 1 ml Metronidazole/Sodium Chloride (Flagyl 500 Mg Ivpb*) 500 mg in 100 mls @ 100 mls /hr IVPB 0630,1430,2230 [facility] Last Admin: 12/06/19 06:41 Dose: 100 mls/hr Ceftriaxone Sodium 2 gm/ (Sodium Chloride) 100 mls @ 200 mls/hr IVPB DAILY@ 1400 [facility] Last Admin: 12/05/19 14:23 Dose: 200 mls/hr Diltiazem/Dextrose (Cardizem Iv D5w Bag* Premix) 125 mg in 125 mls @ 10 mls/hr IV .PER PROTOCOL [facility]; Protocol Last Admin: 12/05/19 21:39 Dose: 10 mls/hr Metoprolol Succinate (Toprol Xl Tab*) 37.5 mg PO BID [facility] Last Admin: 12/06/19 09:40 Dose: 37.5 mg Morphine Sulfate (Morphine Inj (Syringe))*) 2 mg IV Q2H PRN PRN Reason: severe pain breakthrough Last Admin: 12/02/19 22:40 Dose: 2 mg Nicotine (Nicotine Patch 14 Mg/24 Hr*) 1 patch TRANSDERM DAILY [facility] Last Admin: 12/06/19 09:46 Dose: 1 patch Ondansetron HCl (Zofran Inj*) 4 mg IV Q4H PRN PRN Reason: NAUSEA/VOMITING Oxycodone HCl (Roxycodone Tab*) 10 mg PO Q4H PRN PRN Reason: PAIN - SEVERE Last Admin: 12/02/19 16:18 Dose: 10 mg Oxycodone/Acetaminophen (Percocet 5/325 Tab*) 1 tab PO Q4H PRN PRN Reason: PAIN - SEVERE Last Admin: 12/02/19 20:44 Dose: 1 tab Pharmacy Profile Note (Nicotine Patch Removal Note*) 1 note PATCH OFF 0900 [facility] Last Admin: 12/06/19 09:47 Dose: 1 note Vital Signs - 8 hr 12/06/19 12/06/19 12/06/19 06:16 07:15 08:00 Temperature 97.4 F Pulse Rate Respiratory 18 Rate Blood Pressure 126/78 (mmHg) O2 Sat by Pulse 96 Oximetry 12/06/19 12/06/19 12/06/19 08:16 10:16 11:15 Temperature 97.8 F Pulse Rate 60 Respiratory 20 Rate Blood Pressure 125/86 136/75 (mmHg) O2 Sat by Pulse 97 Oximetry Oxygen Devices in Use Now: None Appearance: Pleasant elderly gentleman sitting up in bed in NAD Eyes: No Scleral Icterus Ears/Nose/Mouth/Throat: Mucous Membranes Moist Neck: Trachea Midline Respiratory: Symmetrical Chest Expansion and Respiratory Effort, Clear to Auscultation Cardiovascular: RRR - Normal S1 and S2 Abdominal: - - Obese, soft, mild incisional tenderness, NG, NR, BS+. RAMAN drain has serosanguineous drainage Neurological: Alert and Oriented x 3, NL Muscle Strength and Tone Result Diagrams: 12/05/19 05:24 12/06/19 08:10 Assess/Plan/Problems-Billing Assessment: Mr Pollock is a 69 yo M with PMH of inguinal hernias, HTN who presented with 10 days of lower abdominal pain found to have intra-abdominal abscess. Hospital course complicated by Afib RVR. - Patient Problems (1) Abdominal abscess Comment: - s/p laparoscopic drainage of intra-abdominal abscess 12/03/19. RAMAN drain in place - Fluid culture growing pansensitive E. coli - Continue Ceftriaxone and Metronidazole - PICC placed today - plan to complete 2 weeks of treatment (outpatient infusion at [facility]). (2) Atrial fibrillation Comment: - with RVR, onset night of 11/30/19, cardiverted 12/01/[address] Jones ( DESTINEE, cardioversion). Back in Afib on 12/02/19, converted to NSR on Cardizem gtt on 12/03/19 AM. - In rapid Afib with HR 160 04/06 - resumed Cardizem drip for rate control and Cardiology recommended continuation Amiodarone load. - Back in NSR now - will d/c Cardizem drip and monitor. - Continue Apixaban. (3) EKG abnormality Comment: - deep inverted T waves in anterolateral leads on EKG - will need stress test as outpatient once medically stable and abdominal infection is resolved (4) DVT prophylaxis Comment: - Apixaban (5) Full code status Status and Disposition: Inpatient. Anticipate d/c in AM if remains in NSR or Afib with rate controlled.
[2019-12-06] MEDS ORDERED: Potassium Chlor TAB* 20 MEQ TAB.ER PO ONE (13:49)
[2019-12-06] MEDS: cefTRIAXone(*) 2 GM in NS 0.9% 100 ML* 100 ML IVPB SCH (13:59)
[2019-12-06] MEDS: metroNIDAZOLE TAB* 250 MG PO SCH (21:29)
[2019-12-07 06:33] LABS: BUN/Creatinine Ratio 14.6 (8-20); Calcium 8.4 mg/dL (8.6-10.3); EGFR African American 93.4 (>60); EGFR Non-African American 77.2 (>60); Potassium 3.9 mmol/L (3.5-5.0)
[2019-12-07] MEDS: Aspirin EC TAB* 81 MG TAB.EC PO SCH (09:16)
[2019-12-07] MEDS: Apixaban* 5 MG TAB PO SCH (09:16)
[2019-12-07] MEDS: metroNIDAZOLE TAB* 250 MG PO SCH (09:16)
[2019-12-07] MEDS: Metoprolol Succinate XL TAB* 25 MG PO SCH (09:17)
[2019-12-07] MEDS: Amiodarone TAB* 400 MG PO SCH (09:19)
[2019-12-07] MEDS: Nicotine PATCH 14 MG/24 HR* PATCH TRANSDERM SCH (09:19)
[2019-12-07] MEDS: Nicotine Patch Removal NOTE PATCH OFF SCH (09:20)
--- NOTE | 2019-12-07 10:30 | PN ---
Progress Note - Progress Note Date of Service: 12/07/19 Note: Surgery Progress S: POD #4. On ceftriaxone and flagyl. Denies significant pain ("sore" only). Barbie diet. Reports >8-10 loose stools in past 24 h. Small amounts, mucusy. No blood. No f/c. O: Vital Signs - 8 hr 12/07/19 03:00 Temperature 97.3 F Pulse Rate 66 Respiratory 18 Rate Blood Pressure 165/81 (mmHg) O2 Sat by Pulse 97 Oximetry Intake and Output Last 24 Hours 12/05/19 12/06/19 12/07/19 12/08/19 06:59 06:59 06:59 06:59 Intake Total 9942 274 3036 380 Output Total 365 48 0 Balance 3671 922 4264 380 Intake: IV Fluids 203 63 ABX - CEFTRIAXONE 20 20 Flagyl 43 Lactated Ringers 125 NS 58 IVPB 310 415 100 ABX - CEFTRIAXONE 205 105 100 Flagyl 105 310 Oral 6781 722 0135 380 Output: RAMAN #1 165 48 Urine 0 0 0 [place] 200 Other: Estimated Void Medium Medium # Voids 1 Gen: NAD Heart: reg rate/rhythm Lungs: clear Abd: lap sites ok under steristrips; +BS; moderate amt of serosang drainage on dsg around RAMAN site. RAMAN w/ serosang fluid. No sig tenderness. RAMAN-> removed. DSD placed. C&S reviewed A: s/p laparoscopic drainage of intra-abd abscess, improved (likely "missed appendicitis") P: home today w/ PICC (abx per ID); will arrange surgical f/u for next week. Instructions reviewed.
--- NOTE | 2019-12-07 11:35 | PN ---
Progress Note - Progress Note Date of Service: 12/07/19 SOAP: Subjective: CC: Abdominal abscess HPI: Mr. Pollock is a 69 yo male with PMH significant for peripheral arterial occlusive disease, HTN, tobacco dependence, obesity, and right inguinal hernia; who presented to the hospital with ABD pain and was found to have an ABD abscess. Denies fever, chills, abdominal pain, nausea, or vomiting. He is passing flatus and reports an ok appetite. RAMAN drain was removed this morning. Reports multiple small loose stools daily, 7-8 usually around the time of IV ABX with mild ABD cramping prior to the need to move his bowels. Objective: Vital Signs - 8 hr 12/07/19 12/07/19 07:40 08:00 Temperature 98.2 F Pulse Rate 66 Respiratory 20 20 Rate Blood Pressure 153/80 (mmHg) O2 Sat by Pulse 97 Oximetry Physical Exam: General: NAD, sitting up in bed Neurological: Alert and oriented HEENT: Moist MM Cardiovascular: Heart rate regular Respiratory: Lungs clear bilateral Abdominal: Bowel sounds present; ABD soft, non tender and large Skin: No rash Laboratory Results - last 24 hr 12/07/19 05:15 Sodium 136 Potassium 3.9 Chloride 108 Carbon Dioxide 22 Anion Gap 6 BUN 14 Creatinine 0.96 Est GFR ( Amer) 93.4 Est GFR (Non-Af Amer) 77.2 BUN/Creatinine Ratio 14.6 Glucose 102 H Calcium 8.4 L Microbiology 12/03/19 15:00 Anaerobic Culture - Final Wound - Abdominal Anaerobic Gram Positive Bacill Gram Stain - Final Wound Culture - Final Escherichia Coli 12/04/19 10:20 Urine Culture - Final Urine No Growth (<1,000 CFU/mL) 11/30/19 08:22 Aerobic Blood Culture - Final Blood Venous No Growth Day 5 Anaerobic Blood Culture - Final No Growth Day 5 11/30/19 08:11 Aerobic Blood Culture - Final Blood Venous No Growth Day 5 Anaerobic Blood Culture - Final No Growth Day 5 12/01/19 19:24 Stool Gross Appearance - Final Stool C. difficile DNA Amplification - Final 027 Presumptive NEGATIVE Toxigenic C.diff NEGATIVE Assessment: 1. Abdominal abscess. CT scan from 12/02/19 with "abscess in the right retroperitoneum is unchanged from prior exam. Findings consistent with a periappendiceal abscess with abnormal appendix adjacent to the fluid collection ". S/P laparoscopic drainage of intraabdominal abscess on 12/03/19. Afebrile and no leukocytosis. 2. Diarrhea. Reports multiple small loose stools daily (5-7), not on laxatives or stool softeners. Stool for C-diff negative on 12/01/19. Reports some improvement in number of stools and they occur around the time of ABX. 3. Paroxysmal A fib. 4. Peripheral arterial disease. Plan: Continue Ceftriaxone and Flagyl, day 5 (since surgical drainage). PICC line has been placed. Discharge plan: Will plan on a 2 week course of Ceftriaxone 2gm IV daily and Flagyl 500 mg PO BID. Weekly labs while on IV ABX: CBC, CMP, and CRP. Followup outpatient with ID 1-2 week (Telemed nd).
[2019-12-07] MEDS: cefTRIAXone(*) 2 GM in NS 0.9% 100 ML* 100 ML IVPB SCH (14:11)
--- NOTE | 2019-12-07 14:32 | DS ---
CC: Dr. Alves; Dr. Jones; Dr. Mcdonald; LILI Israel; Dr. Thomas* DISCHARGE SUMMARY: DATE OF ADMISSION: 11/30/19 DATE OF DISCHARGE: 12/07/19 PRIMARY CARE PROVIDER: Dr. Alves. DISPOSITION AT DISCHARGE: Home. CONDITION AT DISCHARGE: Stable. DISCHARGE DIAGNOSES: 1. Intraabdominal abscess, likely due to missed appendicitis, status post laparoscopic surgery performed by Dr. Mcdonald on 12/03/19 and laparoscopic drainage of intraabdominal abscess. 2. Paroxysmal atrial fibrillation. The patient overall had 3 episodes of atrial fibrillation. From the first episode, he had a DESTINEE cardioversion performed by Dr. Jones on 12/01/19. Two further episodes where he cardioverted on pharmacologic therapy with Cardizem drip. Currently, he is in normal sinus rhythm. 3. Abnormal EKG with deep inverted T-waves in anterolateral leads. The patient will need to follow up with Dr. Jones with further diagnostics in regards to his abnormal EKG, likely cardiac stress test once his intraabdominal problems are resolved. SECONDARY DIAGNOSES: 1. Hypertension. 2. Peripheral vascular disease. 3. History of right inguinal hernia. MEDICATIONS AT DISCHARGE: Include: 1. Ceftriaxone 2 g IV daily for a total of 14 days. 2. Flagyl 500 mg twice a day for a total of 14 days. 3. Aspirin 81 mg daily. 4. Apixaban 5 mg b.i.d. 5. Metoprolol succinate 37.5 mg b.i.d. 6. Amiodarone 400 mg twice a day with last day being 12/09/19, then 200 mg twice a day for a total of 5 days, then continue 200 mg daily until seen by Dr. Jones. RECOMMENDATIONS AT DISCHARGE FOR FOLLOWUPS: Include: 1. The patient is to come to [facility] for daily infusion of ceftriaxone. 2. The patient is already scheduled with LILI Israel, for surgical appointment with telemedicine and the details are going to be phoned to the patient in the next several days. 3. The patient is also scheduled to see Dr. Jones on 12/21/19 at 2:45 p.m. for Cardiology followup. 4. The patient is also scheduled with Dr. Jose A Alves, the patient's primary care provider, on 12/15/19 at 10 a.m. for a PCP followup. 5. In regards to wound care, the patient is recommended to shower regularly and change dressing as needed or if soiled. He may leave the wound uncovered if there is no active drainage and usually it will happen in approximately 3 to 5 days. The patient is also recommended to continue ambulation as tolerated, but no heavy lifting above 20 pounds. Further detailed postsurgical instructions are included in his discharge packet. PROCEDURES PERFORMED DURING THE HOSPITAL STAY: Included: 1. DESTINEE cardioversion performed by Dr. Jones on 12/01/19, initially successful , but then the patient went back into AFib 2 days later. 2. On 12/03/19, the patient had laparoscopic abdominal surgery performed by Dr. Mcdonald, who drained the patient's abscess. Please note that during that procedure appendix could not be visualized. The suspicion is that the patient had missed appendicitis. The patient had a RAMAN drain placed in the lower abdomen that was discontinued by the time of discharge. CONSULTATIONS DURING THE HOSPITAL STAY: Included: 1. Our cardiology team, which included Dr. Jones, Dr. Gonzalez, Dr. Flaherty. 2. Our surgical team, which included Dr. Mcdonald and LILI Israel. 3. The patient also was seen by Dr. Thomas from Infectious Diseases. DIAGNOSTIC STUDIES/LAB DATA: Laboratory data during the hospital stay included : On 12/07/19, sodium of 136, potassium 3.9, chloride 108, carbon dioxide 22, BUN 14, creatinine 0.96. White blood cell count of 9.7, hemoglobin of 12.9, hematocrit of 39, and platelets of 211. The patient's microbiology studies showed E. coli from the intraabdominal abscess cultures. Blood cultures were negative. C. diff testing documented on 12/01/[address] of the abdomen and pelvis obtained at admission, impression: "Abscess in the right retroperitoneum is unchanged from prior exam. Findings are consistent with periappendiceal abscess with abnormal appendix adjacent to the fluid collection. Small bowel demonstrates no abnormal dilatation. Overall appearance is unchanged from previous exam." That was compared with a CT obtained on 11/30/19 at [facility]. Transthoracic echocardiogram obtained on 12/01/19 showed EF of 65% to 70% with right and left cavity size normal. Trace mitral regurgitation. HOSPITALIZATION COURSE: Mr. Lowell Pollock is a 69-year-old male who has history of right inguinal hernia and he thought that is what was bothering him when he started having right lower quadrant pain several days prior to admission on 11/30/19. He was urgently seen at [facility] on 11/30/19 and he was noted to have an intraabdominal abscess. It was presumed at this point that it was likely diverticulitis/sigmoid related. The patient was transferred to our facility for further evaluation. Our surgical team saw the patient in evaluation and recommended medical management with broad-spectrum antibiotics. During the patient's initial couple days of hospital stay, he went into AFib with RVR. He was seen by Dr. Jones from Cardiology, who recommended DESTINEE cardioversion that was performed on 12/01/19. Post cardioversion, he did well, although he went back into AFib within the next 2 days. At that point, he was placed on Cardizem drip and continued on amiodarone that was started after cardioversion and kept in rhythm for another couple of days until he went back into AFib. At this point, his Cardizem dose was increased as well as Amiodarone. He also at that point converted on Cardizem IV. Our cardiology team followed the patient throughout his hospital stay and noted that the patient should continue increased dose of amiodarone at 400 mg b.i.d. for another 2 days after discharge, then 200 mg b.i.d. for another 5 days, and then continue 200 mg daily until seen by Dr. Jones for followup. In addition to the above-mentioned, the patient also had abnormal EKG with deeply inverted T- waves in anteroseptal leads. That was going to be followed by our cardiology team as an outpatient. In regards to the patient's intraabdominal abscess, the patient had a repeat CT obtained on 12/02/19 after the patient was evaluated by infectious disease team and at that point it was noted that the patient's intraabdominal abscess is likely periappendiceal. On the same day which is 12/02/19, the patient developed increased abdominal pain and on 12/03/19, Dr. Mcdonald took the patient to the OR. Laparoscopic surgery was performed, during which the patient' s abscess was drained. As per Dr. Mcdonald' note, unfortunately appendix was not visualized. The inflammation of the adjacent mesentery was noted. The small bowel had extensive fibrinous exudates and interloop adhesions especially of the terminal ileum. At this point, the likely diagnosis was missed appendicitis. The patient postop had a RAMAN drain in place until the day of discharge when it was discontinued by the surgical team. By the time of discharge, the patient has absolutely no pain. He did develop diarrhea several times a day. He is recommended to take an [id number] probiotic for that. The patient is to follow with the above-mentioned specialists after discharge. Diet recommended at discharge by our surgical team is regular. PHYSICAL EXAMINATION: At the time of discharge, blood pressure of 153/80, heart rate of 66 and regular, respiratory rate 20, oxygen saturation 97% on room air, temperature of 98.2. General: The patient is a pleasant 69-year-old male, who is in no acute distress. The patient is alert and oriented x3. HEENT : Head: Atraumatic, normocephalic. Eyes: Pupils are equal, reactive to light and accommodation. Oropharynx is clear. Mucosa moist. Neck: Supple. No JVD. No bruits bilaterally. Cardiovascular: Regular rate and rhythm. No murmur. Respiratory: Clear to auscultation bilaterally. Abdomen: Soft, nontender. Bowel sounds present in all 4 quadrants. Extremities: There is no edema. Pulses are 2+ bilaterally. No clubbing or cyanosis. On evaluation of the skin, the patient's RAMAN drain small puncture wound in the suprapubic area is not acutely draining and is covered with a Band-Aid. The patient also has a couple of small incisions postoperative with no evidence of wound dehiscence noted. There are no other rashes or ecchymotic areas noted. Psychiatric Evaluation: Oriented x3, with no evidence of anxiety or depression. Please note that this is a short summary of the patient's prolonged and complicated hospitalization. Please refer to further medical records for details. TIME SPENT: Approximately 45 minutes was spent on the patient's discharge. [id number] #: [id number] MTDD
[2019-12-07 15:16] VITALS: BP 162/80
[2019-12-10] MEDS ORDERED: Amiodarone TAB* 200 MG PO SCH (09:00)
[2019-12-16] MEDS ORDERED: Amiodarone TAB* 200 MG PO SCH (09:00)
== END 2019-12-07 16:20 | disposition home or self-care (01) | DRG 871 ==
LOC: ED 07:47 → MEDTELE 10:16 → OBSVTOIN 12-01 11:00
PROVIDERS: ADMIT Hospitalist; ATTEND Internal Medicine
PROC: B24BZZ4 Ultrasonography of Heart with Aorta, Transesophageal (ICD-10-PCS; 2019-12-01)
PROC: 5A2204Z Restoration of Cardiac Rhythm, Single (ICD-10-PCS; 2019-12-01)
PROC: 0W9G4ZZ Drainage of Peritoneal Cavity, Percutaneous Endoscopic Approach (ICD-10-PCS; principal; 2019-12-03 12:32)
PROC: 02HV33Z Insertion of Infusion Device into Superior Vena Cava, Percutaneous Approach (ICD-10-PCS; 2019-12-05)
DX: A41.9 Sepsis, unspecified organism (principal); K35.33 Acute appendicitis with perforation, localized peritonitis, and gangrene, with abscess; I48.0 Paroxysmal atrial fibrillation; R94.31 Abnormal electrocardiogram [ECG] [EKG]; K40.90 Unilateral inguinal hernia, without obstruction or gangrene, not specified as recurrent; I10 Essential (primary) hypertension; I73.9 Peripheral vascular disease, unspecified; N28.1 Cyst of kidney, acquired; B96.20 Unspecified Escherichia coli [E. coli] as the cause of diseases classified elsewhere; I34.0 Nonrheumatic mitral (valve) insufficiency; R19.7 Diarrhea, unspecified; F17.210 Nicotine dependence, cigarettes, uncomplicated; K76.0 Fatty (change of) liver, not elsewhere classified; K57.30 Diverticulosis of large intestine without perforation or abscess without bleeding; E66.9 Obesity, unspecified; Z68.27 Body mass index [BMI] 27.0-27.9, adult; Z79.01 Long term (current) use of anticoagulants; Z79.82 Long term (current) use of aspirin
CPT/HCPCS: 36415; 71045; 74177; 80048; 80053; 81003; 81015; 82565; 83605; 83735; 84439; 84443; 84484; 84520; 85025; 85610; 85730; 86140; 87040; 87070; 87073; 87077; 87086; 87186; 87205; 87493; 93005; 93306; 96361; 96374; 99284; A9270-GY; C1751; G0378; J0282; J0690; J0696; J0744; J1100; J1160; J1644; J2250; J2270; J2310; J2405; J2704; J2710; J3010; J3475; J3490; Q9967